=== PATIENT | female | born 1950 | race Caucasian/White ===

== ENCOUNTER → 2017-05-10 10:01 | Outpatient (CLI) | payer MEDICARE, OTHER, SELFPAY ==
--- NOTE | 2017-05-10 10:08 | HPBI_ITS ---
MAMMOGRAPHY - BILATERAL SCREENING REASON FOR EXAM: Female, 66 years old. Routine annual screening examination. PERTINENT HISTORY: Non-contributory. TECHNIQUE: Digital bilateral breast sy (3D mammographic acquisition) in the CC and MLO projections. 2-D mediolateral oblique (MLO) and craniocaudad (CC) views of both breasts were obtained. CAD: Full Field Digital Mammography with Computer Added Detection was performed. COMPARISON: None. Baseline examination. FINDINGS: Breast Composition: There are scattered areas of fibroglandular density. There are no dominant masses or suspicious calcifications. There is an 8 mm x 6.4 mm well-defined nodule in the deep upper medial portion of the left breast. This has the appearance of a small lymph node. No other significant abnormalities are identified. HPBI/SCREENING MAMM (CAD), BILAT IMPRESSION: Negative screening mammogram. Yearly followup mammogram recommended. (A) ASSESSMENT CATEGORY: BIRADS Category 2: Benign. A letter regarding these results will be sent to the patient by the facility within 30 days. Approximately 10% of breast cancers are not detected by mammography. A normal mammogram should not delay biopsy of a clinically suspicious abnormality. [id number] Electronically Signed: David Harris MD at 13:14 EST Tel [phone], Service support ,
== END ==
PROVIDERS: Family Provider Internal Medicine; PCP Internal Medicine; Visit Provider Internal Medicine
DX: Z12.31 Encounter for screening mammogram for malignant neoplasm of breast (principal)
CPT/HCPCS: 77063; 77067

== ENCOUNTER 2017-07-06 14:07 | Emergency (ER) | payer MEDICARE, OTHER, SELFPAY ==
[2017-07-06 14:09] VITALS: BP 118/93; PULSE 69; RESP 16; TEMP 35.8; O2SAT 99; BMI 20.9
--- NOTE | 2017-07-06 14:16 | EKG12_ITS ---
Test Reason : SYNCOPE Blood Pressure : / mmHG Vent. Rate : 067 BPM Atrial Rate : 067 BPM P-R Int : 152 ms QRS Dur : 072 ms QT Int : 424 ms P-R-T Axes : 043 -04 013 degrees QTc Int : 448 ms Sinus rhythm with Premature atrial complexes Low voltage QRS Incomplete Right bundle branch block Previous inferior infarct Abnormal ECG Confirmed by CHANG MCDONNELL, PRAFUL ([id number]), non linear editor KOBY CONNER ([id number]) on 07/10/2017 1:36:55 PM Referred By: LILA Confirmed By:PRAFUL DOWNING MD
--- NOTE | 2017-07-06 14:33 | NURSING ---
NO LW OR POA
--- NOTE | 2017-07-06 14:54 | RAD_ITS ---
STUDY: X-RAY CHEST REASON FOR EXAM: Female, 66 years old. LIGHT-HEADEDNESS TECHNIQUE: Single AP portable view of the chest. COMPARISON: None. FINDINGS: The lungs are clear and expanded. There is no demonstrated pleural abnormality. Normal size heart. Normal mediastinum and kary. Normal visualized pulmonary arteries. There is atherosclerotic tortuosity of the aortic arch and descending thoracic aorta. Normal visualized thoracic spine. There is degenerative osteoarthritis of the bilateral shoulders. There is no demonstrated abnormality of the visualized soft tissue structures of the upper abdomen. RAD/Chest 1 View (Portable) IMPRESSION: Degenerative changes, as described above. No demonstrated acute cardiopulmonary process. Electronically Signed: Too Ling MD at 15:29 EDT Tel , Service support ,
--- NOTE | 2017-07-06 15:00 | ED.VISSUMM ---
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 Had a near syncopal event at a grocery store. Patient states she was standing in a grocery line felt lightheaded and lowered herself to the ground did not lose consciousness. Prior to the event other than feeling lightheaded she denied any headache, chest pain, shortness of breath, abdominal pain, or any nausea, vomiting or diarrhea. No melena. She says she has felt fine the last several days. She has had a history of syncopal events in the past. Physical Examination: Well-appearing older female. Vital signs are stable afebrile. Pulse ox 99% room air no signs of hypoxia. H EENT exam unremarkable neck nontender lungs clear to auscultation bilaterally. Heart regular rate and rhythm no murmur rate about 70. Chest wall nontender. Abdomen soft nontender nondistended no giving or masses normal bowel sounds no peritoneal signs. Moving all 4 extremities. Neurovascularly intact. Calves nontender without edema or cords. Neurologically she is abnormal speech from her prior neurological condition but there is no focal motor deficits. Test Results: See normal white count of 6 normal H&H. BMP unremarkable with a BUN 27 creatinine 1.21 consistent with mild dehydration. Troponin negative. EKG sinus rhythm rate 67 no acute change from prior EKG from July of last year. Chest x-ray chronic changes normal cardiac silhouette no acute process read both by myself the radiologist. When the nurses did a static vital signs her pressure did drop with standing. She is currently receiving a liter normal saline 1 sets and will recheck her blood pressure she is doing well she will be discharged home. Emergency Department Course and Treatment: Patient with near syncope with unremarkable exam other than chronic speech difficulty. Undergo cardiac workup receive a liter of normal saline and have orthostatic vital signs obtained. Treatment Plan: Discharged plenty of fluids and rest. Return if feeling worse otherwise follow-up with your primary care physician. Disposition: discharge Impression: Near syncope Dehydration This note was generated with [employer] dictation software. It may contain incorrect words, spelling, and punctuation that were not noted in review of the chart prior to signing ED Disposition - Plan for ED Patient: Chief Complaint: Syncope Referrals: Maureen Lepe MD [Primary Care Provider] -
[2017-07-06 15:23] VITALS: BP 149/89; PULSE 74; RESP 16; O2SAT 98
[2017-07-06] MEDS: 0.9% Normal Saline 1,000 ML 1000 ML IV (15:23)
[2017-07-06 15:26] LABS: Absolute Lymphocyte Count 1.31 X10^3/ul (0.83-4.51); Absolute Neutrophil Count 4.2 X10^3/uL (2.0-7.7); Basophil# 0.02 X10^3/uL; Basophil% 0.3 % (0-1); Eosinophil# 0.07 X10^3/uL; Eosinophils% 1.2 % (0-5); Hematocrit 44.7 % (37-47); Hemoglobin 14.8 g/dl (12.0-15.0); Lymphocyte # 1.31 X10^3/ul (4.0); Lymphocyte % 21.6 % (19-41); Mean Corp Hgb Conc 33.1 g/gl (32-36); Mean Corpuscular Volume 93.7 fL (81-99); Mean Platelet Vol. 10.9 fl (6.2-12.0); Monocyte# 0.47 X10^3/uL; Monocyte% 7.7 % (0-10); Neutrophil % 69.2 % (47-70); POSITIVE COUNT NO; POSITIVE DIFFERENTIAL NO; POSITIVE MORPHOLOGY NO; Platelet Count 140 K/mm3 (150-450); RBC Distribution Width CV 12.8 % (11.6-14.6); RBC Distribution Width SD 43.7 fl (35.1-43.9); Red Blood Count 4.77 M/mm3 (4.2-5.4); White Blood Count 6.1 K/mm3 (4.4-11.0)
[2017-07-06 15:43] LABS: Anion Gap 7 (5-15); BUN 27 mg/dL (7-18); BUN/Creat Ratio 22.3 RATIO (10-20); Calcium,Total 9.9 mg/dL (8.5-10.1); Chloride 110 mmol/L (98-107); Creatinine, Serum 1.21 mg/dL (0.55-1.02); EST Glomerular Filtration Rate 47 mL/min (>60); Est Glom Filt Rate - Afr Amer 57 mL/min (>60); Estimated Creatinine Clearance 38.43 ml/min; Glucose 86 mg/dL (74-106); Sodium Level 144 mmol/L (136-145)
[2017-07-06 15:57] VITALS: BP 122/59; BP 132/77; BP 96/62; PULSE 68; PULSE 75; PULSE 89
--- NOTE | 2017-07-06 17:10 | ED.DEP ---
ED Disposition - Plan for ED Patient: Disposition: Home or Assisted Living Chief Complaint: Syncope Instructions: ED Hypotension Orthostatic, ED Dehydration Referrals: Maureen Lepe MD [Primary Care Provider] - Additional Instructions: Plenty of fluids and rest. Return if feeling worse. Otherwise follow-up with your doctor next week to ensure your feeling well.
[2017-07-06 17:56] VITALS: BP 125/63; BP 129/79; PULSE 61; PULSE 72
== END 2017-07-06 17:57 | disposition home or self-care (01) ==
PROVIDERS: Emergency Provider Emergency Medicine
DX: R55 Syncope and collapse (principal); E86.0 Dehydration; I10 Essential (primary) hypertension; I45.10 Unspecified right bundle-branch block
CPT/HCPCS: 71045; 80048; 84484; 85025; 93005; 99285; J7030; A4216

== ENCOUNTER 2017-09-26 13:21 | Inpatient (IN) | payer MEDICARE, OTHER, SELFPAY ==
[2017-09-26] VITALS (12 sets, daily range): BP systolic 117–137; BP diastolic 67–92; PULSE 72–126; RESP 14–20; TEMP 36.4–36.6; O2SAT 98–99; BMI 23.0; BMI 22.3
--- NOTE | 2017-09-26 13:27 | CT_ITS ---
STUDY: CT BRAIN WITHOUT CONTRAST REASON FOR EXAM: Female, 67 years old. SLURRED SPEECH RADIATION DOSAGE (If Supplied By Facility): CTDIvol = ( ) mGy, DLP = ( ) mGycm TECHNIQUE: Transaxial CT imaging of the brain was performed without administration of intravenous contrast material. Individualized dose optimization techniques were used for this CT. COMPARISON: October 11, 2016 FINDINGS: There is cerebral atrophy with widening of the extra-axial spaces and ventricular dilatation. There are areas of decreased attenuation within the white matter tracts of the supratentorial brain, consistent with microvascular disease changes. Again noted are the extensive bilateral basal ganglia, thalamic and mckay radiata and cerebellar calcifications. There is no intracranial hemorrhage. There are no findings of an acute ischemic infarction. Normal soft tissue structures. Normal visualized paranasal sinuses. CT/Brain/Head without Contrast IMPRESSION: No acute intracranial abnormality. Extensive dense calcifications. N.B. : The above information has been verbally conveyed by Radha Reed MD to , Covering Physician, on 09/26/2017 13:52:54 (ET). Electronically Signed: Radha Reed MD at 13:52 EDT Tel , Service support , N.B. : The above information has been verbally conveyed by Radha Reed MD to , Covering Physician, on 09/26/2017 13:52:54 (ET).
--- NOTE | 2017-09-26 13:27 | EKG12_ITS ---
Test Reason : STROKE Blood Pressure : / mmHG Vent. Rate : 113 BPM Atrial Rate : 096 BPM P-R Int : 000 ms QRS Dur : 130 ms QT Int : 372 ms P-R-T Axes : 000 040 -07 degrees QTc Int : 510 ms Atrial fibrillation Right bundle branch block Abnormal ECG Confirmed by SHANIQUE MCDONNELL, IVA ([id number]), editor farm journal KOBY CONNER ([id number]) on 09/28/2017 2:39:03 PM Referred By: LILA Confirmed By:IVA BAY MD
--- NOTE | 2017-09-26 13:28 | NURSING ---
DR MOJIAC IN ROOM
[2017-09-26 13:30] LABS: Bedside Glucose 110 mg/dL (70-110)
--- NOTE | 2017-09-26 13:32 | ED.VISSUMM ---
- ER Visit Summary Date of Service: 09/26/17 Chief Complaint: Sudden onset of slurred speech and left facial droop approximately 1235 today. History of Present Illness: The patient is a 67 F onset of left facial droop and slurred speech less than an hour ago. Brought in by squad. History per patient and squad. Patient states she has had this 1 other time but was never told that she had a stroke. She denies other complaints. Physical Examination: Well-appearing older female. Vital signs are stable afebrile. Her heart rate 115. Pulse ox 90% room air no signs of hypoxia. H EENT exam left facial droop. Tongue midline. Slurred speech but audible. Neck nontender. Lungs clear to auscultation bilaterally. Heart tachycardic rate about 115 no murmur. Chest wall nontender. Abdomen soft nontender. Moving all 4 extremities. Extremities neurovascularly intact. 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 She has negative drift of either the upper or lower extremities. Dorsi and plantar flexion intact. Normal sensation bilaterally. Fingertip to nose within normal limits bilaterally. Back exam nontender. Neurologically she is an NIH score of 2. With slurred speech that you can understand however. And a mild left facial droop. She has normal motor and sensation of both upper and lower extremities. Without ataxia or drift. Test Results: Patient will undergo a initial stroke workup. Dr. Wilberto Knight of neurology was in the room on my initial evaluation. CT of the brain without contrast showed no acute abnormalities read by the radiologist. Portable chest x-ray no acute abnormality. CBC normal. BMP unremarkable other than a creatinine 1.49. Normal gap. PT and INR unremarkable. Troponin normal. EKG is tachycardia rate of 113 with a right bundle pillo block. Emergency Department Course and Treatment: Repeat exam at 1400 the patient's exam is not changed. Her NIH remains to with the facial droop and slurred but intelligible speech. Otherwise normal motor function and sensation of the extremities. Treatment Plan: Admission for stroke evaluation Disposition: Admission Impression: Acute onset left facial droop and slurred speech rule out CVA This note was generated with [employer] software. It may contain incorrect words, spelling, and punctuation that were not noted in review of the chart prior to signing ED Disposition - Plan for ED Patient: Chief Complaint: Neuro S/Sx Referrals: Maureen Lepe MD [STAFF PHYSICIAN] -
--- NOTE | 2017-09-26 13:35 | ED.DCSUM_ITS ---
- ER Visit Summary Date of Service: 09/26/17 Chief Complaint: Sudden onset of slurred speech and left facial droop approximately 1235 today. History of Present Illness: The patient is a 67 F onset of left facial droop and slurred speech less than an hour ago. Brought in by squad. History per patient and squad. Patient states she has had this 1 other time but was never told that she had a stroke. She denies other complaints. Physical Examination: Well-appearing older female. Vital signs are stable afebrile. Her heart rate 115. Pulse ox 90% room air no signs of hypoxia. H EENT exam left facial droop. Tongue midline. Slurred speech but audible. Neck nontender. Lungs clear to auscultation bilaterally. Heart tachycardic rate about 115 no murmur. Chest wall nontender. Abdomen soft nontender. Moving all 4 extremities. Extremities neurovascularly intact. 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 She has negative drift of either the upper or lower extremities. Dorsi and plantar flexion intact. Normal sensation bilaterally. Fingertip to nose within normal limits bilaterally. Back exam nontender. Neurologically she is an NIH score of 2. With slurred speech that you can understand however. And a mild left facial droop. She has normal motor and sensation of both upper and lower extremities. Without ataxia or drift. Test Results: Patient will undergo a initial stroke workup. Dr. Wilberto Knight of neurology was in the room on my initial evaluation. CT of the brain without contrast showed no acute abnormalities read by the radiologist. Portable chest x-ray no acute abnormality. CBC normal. BMP unremarkable other than a creatinine 1.49. Normal gap. PT and INR unremarkable. Troponin normal. EKG is tachycardia rate of 113 with a right bundle pillo block. Emergency Department Course and Treatment: Repeat exam at 1400 the patient's exam is not changed. Her NIH remains to with the facial droop and slurred but intelligible speech. Otherwise normal motor function and sensation of the extremities. Treatment Plan: Admission for stroke evaluation Disposition: Admission Impression: Acute onset left facial droop and slurred speech rule out CVA This note was generated with [employer] software. It may contain incorrect words, spelling, and punctuation that were not noted in review of the chart prior to signing ED Disposition - Plan for ED Patient: Chief Complaint: Neuro S/Sx Referrals: Maureen Lepe MD [STAFF PHYSICIAN] -
[2017-09-26 13:39] LABS: Absolute Neutrophil Count 4.3 X10^3/uL (2.0-7.7); Basophil# 0.03 X10^3/uL; Basophil% 0.4 % (0-1); Eosinophil# 0.15 X10^3/uL; Eosinophils% 2.2 % (0-5); Hematocrit 44.3 % (37-47); Hemoglobin 14.8 g/dl (12.0-15.0); Mean Corp Hgb Conc 33.4 g/gl (32-36); Mean Corpuscular Hgb 30.7 pg (27.0-32.0); Mean Corpuscular Volume 91.9 fL (81-99); Mean Platelet Vol. 10.7 fl (6.2-12.0); Monocyte# 0.63 X10^3/uL; Monocyte% 9.3 % (0-10); Neutrophil # 4.29 X10^3/uL (2.7-7.7); Neutrophil % 63.1 % (47-70); Platelet Count 156 K/mm3 (150-450); RBC Distribution Width CV 12.4 % (11.6-14.6); RBC Distribution Width SD 41.7 fl (35.1-43.9); Red Blood Count 4.82 M/mm3 (4.2-5.4); White Blood Count 6.8 K/mm3 (4.4-11.0)
[2017-09-26 13:42] LABS: International Normalized Ratio 1.1; Partial Thromboplast Time 26.3 Seconds (24.1-36.2)
[2017-09-26 13:45] LABS: POSITIVE COUNT NO; POSITIVE DIFFERENTIAL NO; POSITIVE MORPHOLOGY NO
--- NOTE | 2017-09-26 13:47 | NURSING ---
1314 STROKE ALERT CALLED
[2017-09-26 13:50] LABS: Anion Gap 9 (5-15); BUN 24 mg/dL (7-18); BUN/Creat Ratio 16.1 RATIO (10-20); Calcium,Total 9.7 mg/dL (8.5-10.1); Chloride 109 mmol/L (98-107); Creatinine, Serum 1.49 mg/dL (0.55-1.02); EST Glomerular Filtration Rate 37 mL/min (>60); Est Glom Filt Rate - Afr Amer 45 mL/min (>60); Estimated Creatinine Clearance 30.77 ml/min; Glucose 118 mg/dL (74-106); Sodium Level 143 mmol/L (136-145)
--- NOTE | 2017-09-26 13:58 | CON.PCM_ITS ---
Reason for Consult Date of Consultation: 09/26/17 Reason for Consultation: Slurred speech, stroke team History of Present Illness: The patient is a 67 year old female with a history of Fahr's disease, who at approximately 1235 her says she became nonspecifically abnormal, she states was apparently standing and became confused. She does tell me that she has had multiple spells of lightheadedness over the past couple weeks for unclear reasons. The called the squad who called a stroke team from the field because of slurred speech however her tells me that her slurred speech is now her baseline related to her fahr's disease. He believes she is normal now. She has been feeling otherwise well recently, without new medicines, changes in her medications, no GI or complaints or recent illnesses. Denies stress. Initially a stroke team was called, I met the patient in the emergency department, observed Dr. Menjivar's examination and conducted my own examination. I reviewed the CAT scan concurrent with the CAT scans performance in the educational technologist room. 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 Overactive bladder (Acute) N32.81 Vitamin K deficiency disease (Acute) E56.1 HTN (hypertension) (Chronic) I10 Allergies clonidine Allergy (Verified 07/06/17 14:08) Rash propoxyphene napsylate [From Darvocet-N] Allergy (Verified 07/06/17 14:08) Rash triamcinolone Allergy (Verified 07/06/17 14:08) Rash Home Medications: Ambulatory Orders Medication Instructions Recorded Aspirin [Adult Low Dose Aspirin EC] 81 mg PO DAILY 05/14/15 cyanocobalamin (vit B-12) 100 mcg 100 mcg PO ONCE 05/11/17 tablet diphenhydramine 25 mg tablet 25 mg PO ONCE 05/11/17 meloxicam 15 mg tablet 15 mg PO QHS #90 tab 05/11/17 trazodone 50 mg tablet 50 mg PO QHS #90 tab 05/11/17 Surgical History: Surgical History (Last Reviewed 05/11/17 @ 11:00 by CATHERINE Blancas) History of back surgery Z98.890 History of hysterectomy Z98.890, Z90.710 History of tonsillectomy Z98.890, Z90.89 history of bladder sling Lives: Spouse/ Significant Other Smoking Status: Never smoker Review of Systems Constitutional: Denies: Chills, Fever, Weight Change HEENT: Denies: Head Aches, Sinus Congestion, Sinus Drainage Cardiovascular: Denies: Chest Pain, Palpitations Respiratory: Denies: Cough, Shortness of breath at rest, Sputum production Gastrointestinal: Denies: Abdominal Pain, Nausea, Vomiting Genitourinary: Denies: Dysuria Musculoskeletal: Denies: Joint Pain, Joint Tenderness Skin: Denies: Rash, Wounds Neurological: Reports: Slurred speech. Denies: Change in Speech, Focal weakness , Numbness, Tingling Psychiatric: Denies: Anxiety, Depression, Homicidal Ideations, Suicidal Ideations Hematologic/ Lymphatic: Denies: Easy Bruising, Easy Bleeding Objective: Logic examination does reveal dysarthria but otherwise normal examination cranial nerves are intact Visual aviles are intact There is no drift Strength and sensation are intact - Physical Exam Vital Signs Temp Pulse Resp BP Pulse Ox 36.4 C L 115 H 20 H 135/77 H 99 09/26/17 13:22 09/26/17 13:26 09/26/17 13:26 09/26/17 13:26 09/26/17 13:48 Oxygen Flow Rate (L/min) 2 Oxygen Delivery Method Nasal Cannula Weight: 60.8 kg Body Mass Index (BMI) 23.0 Finger Stick Blood Glucose 110 Laboratory Tests Past 24 Hrs 09/26/17 09/26/17 09/26/17 13:25 13:25 13:25 WBC 6.8 RBC 4.82 Hgb 14.8 Hct 44.3 MCV 91.9 MCH 30.7 MCHC 33.4 RDW 12.4 RDW Differential 41.7 Plt Count 156 MPV 10.7 Immature Gran % (Auto) 0.000 Neut % (Auto) 63.1 Lymph % (Auto) 25.0 [place] % (Auto) 9.3 Eos % (Auto) 2.2 Baso % (Auto) 0.4 Absolute Neuts (auto) 4.3 Absolute Lymphs (auto) 1.70 Total Counted Not Reportable PT 14.0 INR 1.1 APTT 26.3 Sodium 143 Potassium 4.0 Chloride 109 H Carbon Dioxide 25.0 Anion Gap 9 BUN 24 H Creatinine 1.49 H Estim Creat Clear Calc 30.77 Est GFR (MDRD) Af Amer 45 L Est GFR (MDRD) Non-Af 37 L BUN/Creatinine Ratio 16.1 Glucose 118 H Calcium 9.7 Troponin I < 0.015 POC Glucose 09/26/17 13:25 POC Glucose 110 Reviewed the CAT scan, she does have severe diffuse calcifications in the cerebellum as well as in the subcortical white matter, and 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 Assessment/Plan All Active Problems (Last Reviewed 05/11/17 @ 11:00 by Santhosh Mai NP-C) Overactive bladder (Acute) Vitamin K deficiency disease (Acute) Sinusitis (Acute) 1. Presyncope: Blood pressure is noted to be low when she arrived in the emergency department. Recommend further evaluation for low blood pressure. There is no cause evident at this point. Is no evidence of stroke symptoms at this point, therefore no indication for TPA. 2. Fahrs disease: Chronic stable
--- NOTE | 2017-09-26 14:02 | RAD_ITS ---
STUDY: X-RAY CHEST REASON FOR EXAM: Female, 67 years old. CVA WORK UP TECHNIQUE: Single AP portable view of the chest. COMPARISON: None. FINDINGS: The lungs are clear and expanded. There is no demonstrated pleural abnormality. Normal size heart. Normal mediastinum and kary. Normal visualized pulmonary arteries. Normal visualized aortic arch and descending thoracic aorta. There is a mild levoscoliosis of the thoracic spine. There is degenerative osteoarthritis of the bilateral shoulders. There is no demonstrated abnormality of the visualized soft tissue structures of the upper abdomen. RAD/Chest 1 View IMPRESSION: Degenerative changes, as described above. No demonstrated acute cardiopulmonary process. Electronically Signed: Too Ling MD at 14:30 EDT Tel , Service support ,
--- NOTE | 2017-09-26 14:13 | NURSING ---
PCU RT FACIAL DROOP AND SLURRED SPEECH DREW SHARP
--- NOTE | 2017-09-26 14:42 | PCM.HP.STD ---
Problem List (1) Chronic back pain Status: Chronic (2) Fahr's disease Status: Chronic (3) Overactive bladder Status: Chronic History of Present Illness Date of Admission: 09/26/17 Chief Complaint: Slurred speech, facial droop. The patient is a 67 year old F with past medical history as mentioned above presented to the emergency room because of slurred speech and facial droop. Her symptoms started around 12:35 PM today with sudden onset left-sided facial droop associated with slurred speech, lasted until she came to the emergency department and without aggravating or relieving factors.. According to the , she was standing, could not move, putted her head down and started having facial droop on the left side as well as slurred speech. 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 She denied focal arm or leg weakness. She reported chronic bilateral leg numbness. There was no reported loss of consciousness or seizure activity. Upon arrival to ER, her NIH stroke scale was 2. Stroke team called and no TPA was given. She was tachycardic, afebrile, blood pressure stable and pulse ox is maintained on room air. Her routine blood work was remarkable for creatinine of 1.49, otherwise unremarkable. Troponin is negative. EKG revealed wide QRS complexes, right bundle branch block and prolonged QTC, no acute ST elevation. CT scan brain showed no acute infarction or hemorrhage. Chest x-ray showed no acute infiltrate, consolidation or effusion. She is being admitted for slurred speech and facial droop with concern of TIA versus acute stroke. 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 Overactive bladder (Chronic) N32.81 Allergies clonidine Allergy (Verified 07/06/17 14:08) Rash propoxyphene napsylate [From Darvocet-N] Allergy (Verified 07/06/17 14:08) Rash triamcinolone Allergy (Verified 07/06/17 14:08) Rash Home Medications: Ambulatory Orders Medication Instructions Recorded Aspirin [Adult Low Dose Aspirin EC] 81 mg PO DAILY 05/14/15 cyanocobalamin (vit B-12) 100 mcg 100 mcg PO ONCE 05/11/17 tablet diphenhydramine 25 mg tablet 25 mg PO ONCE 05/11/17 meloxicam 15 mg tablet 15 mg PO QHS #90 tab 05/11/17 trazodone 50 mg tablet 50 mg PO QHS #90 tab 05/11/17 Surgical History: Surgical History (Last Reviewed 05/11/17 @ 11:00 by CATHERINE Blancas) History of back surgery Z98.890 History of hysterectomy Z98.890, Z90.710 History of tonsillectomy Z98.890, Z90.89 history of bladder sling Surgical History: hysterectomy Psychiatric History: No pertinent psych hx 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 Lives: Spouse/ Significant Other Smoking Status: Never smoker Alcohol: None Drugs: None - *Family History Maternal Family History: Family History (Last Reviewed 05/11/17 @ 11:00 by CATHERINE Blancas) Mother Depression Father Heart disease History Items: No pertinent history Paternal Family History: Family History (Last Reviewed 05/11/17 @ 11:00 by CATHERINE Blancas) Mother Depression Father Heart disease History Items: No pertinent history Review of Systems Constitutional: Denies: Anorexia, Chills, Fever, Weakness Eyes: Denies: Blurred vision, Double vision, Drainage, Vision Change HEENT: Denies: Difficulty Hearing, Ear Pain, Eye Pain, Nasal Congestion, Sore Throat Cardiovascular: Denies: Chest Pain, Chest Pressure, Chest Tightness, Heaviness, Light Headedness, Palpitations, Syncope Respiratory: Denies: Cough, Pleuritic Pain, Shortness of Breath, Sputum production, Wheezing Gastrointestinal: Denies: Abdominal Pain, Constipation, Diarrhea, Nausea, Vomiting Genitourinary: Denies: Dysuria, Frequency, Hematuria Musculoskeletal: Denies: Arm Pain, Back Pain, Foot Pain Neurological: Reports: Change in Speech, Slurred speech, - - Facial droop.. Denies: Balance problems, Incoordination, Numbness, Tingling Psychiatric: Denies: Anxiety, Depression Endocrine: Denies: Change in Body Habitus, Polydipsia VTE Information - Inpt Only VTE Present on Admission: No VTE Mechan Device Prophylaxis: None VTE Pharm Prophylaxis ordered?: Yes - Physical Exam General: Alert, Oriented x3, Cooperative, No apparent distress, - - Dysarthria, left facial droop. HEENT: Atraumatic, PERRLA, EOMI, Normocephalic Oral: Moist Mucosa, No Gingival or Mucosal Lesions/ Ulcerations Neck: Supple, No JVD, Negative Carotid Bruits, Trachea Midline, Thyroid Normal Size and Texture Lungs: Clear to auscultation, No rhonchi, No wheeze, No rales, Diminished Cardiovascular: Regular rate, Regular Rhythm, Normal S1, Normal S2, No murmurs Abdomen: Bowel Sounds Present, Soft, Non Tender, Non-Distended, No Hepato-splenomegaly Extremities: No clubbing, No cyanosis, No edema Skin: No rashes, No breakdown Lymphatic: No Cervical, Supraclavicular, or Inguinal Adenopathy Neurological: Motor Exam 5/5 strength throughout, - - Dysarthria, left facial droop. Psych/Mental Status: Normal Affect, Appropriate, Alert and oriented to time, place, person, mood and affect Vital Signs Temp Pulse Resp BP Pulse Ox 97.6 F L 111 H 18 118/92 H 99 09/26/17 13:22 09/26/17 14:03 09/26/17 14:03 09/26/17 14:03 09/26/17 13:48 Oxygen Flow Rate (L/min) 2 Oxygen Delivery Method Nasal Cannula Weight: 134 lb 0.657 oz Body Mass Index (BMI) 23.0 Finger Stick Blood Glucose 110 Laboratory Tests Past 24 Hrs 09/26/17 09/26/17 09/26/17 13:25 13:25 13:25 WBC 6.8 RBC 4.82 Hgb 14.8 Hct 44.3 MCV 91.9 MCH 30.7 MCHC 33.4 RDW 12.4 RDW Differential 41.7 Plt Count 156 MPV 10.7 Immature Gran % (Auto) 0.000 Neut % (Auto) 63.1 Lymph % (Auto) 25.0 [place] % (Auto) 9.3 Eos % (Auto) 2.2 Baso % (Auto) 0.4 Absolute Neuts (auto) 4.3 Absolute Lymphs (auto) 1.70 Total Counted Not Reportable PT 14.0 INR 1.1 APTT 26.3 Sodium 143 Potassium 4.0 Chloride 109 H Carbon Dioxide 25.0 Anion Gap 9 BUN 24 H Creatinine 1.49 H Estim Creat Clear Calc 30.77 Est GFR (MDRD) Af Amer 45 L Est GFR (MDRD) Non-Af 37 L BUN/Creatinine Ratio 16.1 Glucose 118 H Calcium 9.7 Troponin I < 0.015 POC Glucose 09/26/17 13:25 POC Glucose 110 Clinical Impression(s) from Imaging Studies Brain CT 09/26/17 13:27 IMPRESSION: No acute intracranial abnormality. Extensive dense calcifications. N.B. : The above information has been verbally conveyed by Radha Reed MD to , Covering Physician, on 09/26/2017 13:52:54 (ET). Electronically Signed: Radha Reed MD at 13:52 EDT Tel , Service support , N.B. : The above information has been verbally conveyed by Radha Reed MD to , Covering Physician, on 09/26/2017 13:52:54 (ET). Chest X-Ray 09/26/17 14:02 IMPRESSION: Degenerative changes, as described above. No demonstrated acute cardiopulmonary process. Electronically Signed: Too Ling MD at 14:30 EDT Tel , Service support , Assessment/Plan This is a 67 years old female patient presented to the emergency room because of slurred speech and facial droop in context of history of Fahr's chronic dysarthria and she is being admitted for evaluation for possible TIA versus stroke. #1 Slurred speech/left facial droop/probable TIA versus stroke: She does have chronic dysarthria but no facial droop. CT scan brain without acute findings. On examination, she still have left facial droop, no motor deficit. Blood pressure stable, tachycardic. Plan: Admit to PCU, cardiac monitoring, NIH stroke scale, MRI brain, 2D echocardiogram, neurology consult, PT OT evaluation and treatment. #2 abnormal EKG: EKG revealed wide QRS complexes, right bundle branch block and QTC of 510 ms. Compared to EKG from June,, those changes are new. Patient denies any chest pain. Troponin was negative. Plan: 2D echocardiogram, repeat EKG tomorrow morning. #3 dehydration: Likely because of poor oral intake. Creatinine is 1.49, most recently it was 1.21. Baseline creatinine is normal. Plan: IV fluids, repeat BMP tomorrow morning, encourage oral intake. #4 Fahr's disease: Chronic, stable. #5 DVT prophylaxis: Subcu heparin. This note was generated with [employer] dictation software. It may contain incorrect words, spelling, and punctuation that were not noted in checking the note before signing. Code Visit Inpatient E&M: 68519 Init Hosp L3
--- NOTE | 2017-09-26 14:49 | HP.PCM_ITS ---
Problem List (1) Chronic back pain Status: Chronic (2) Fahr's disease Status: Chronic (3) Overactive bladder Status: Chronic History of Present Illness Date of Admission: 09/26/17 Chief Complaint: Slurred speech, facial droop. The patient is a 67 year old F with past medical history as mentioned above presented to the emergency room because of slurred speech and facial droop. Her symptoms started around 12:35 PM today with sudden onset left-sided facial droop associated with slurred speech, lasted until she came to the emergency department and without aggravating or relieving factors.. According to the , she was standing, could not move, putted her head down and started having facial droop on the left side as well as slurred speech. 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 She denied focal arm or leg weakness. She reported chronic bilateral leg numbness. There was no reported loss of consciousness or seizure activity. Upon arrival to ER, her NIH stroke scale was 2. Stroke team called and no TPA was given. She was tachycardic, afebrile, blood pressure stable and pulse ox is maintained on room air. Her routine blood work was remarkable for creatinine of 1.49, otherwise unremarkable. Troponin is negative. EKG revealed wide QRS complexes, right bundle branch block and prolonged QTC, no acute ST elevation. CT scan brain showed no acute infarction or hemorrhage. Chest x-ray showed no acute infiltrate, consolidation or effusion. She is being admitted for slurred speech and facial droop with concern of TIA versus acute stroke. 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 Overactive bladder (Chronic) N32.81 Allergies clonidine Allergy (Verified 07/06/17 14:08) Rash propoxyphene napsylate [From Darvocet-N] Allergy (Verified 07/06/17 14:08) Rash triamcinolone Allergy (Verified 07/06/17 14:08) Rash Home Medications: Ambulatory Orders Medication Instructions Recorded Aspirin [Adult Low Dose Aspirin EC] 81 mg PO DAILY 05/14/15 cyanocobalamin (vit B-12) 100 mcg 100 mcg PO ONCE 05/11/17 tablet diphenhydramine 25 mg tablet 25 mg PO ONCE 05/11/17 meloxicam 15 mg tablet 15 mg PO QHS #90 tab 05/11/17 trazodone 50 mg tablet 50 mg PO QHS #90 tab 05/11/17 Surgical History: Surgical History (Last Reviewed 05/11/17 @ 11:00 by CATHERINE Blancas) History of back surgery Z98.890 History of hysterectomy Z98.890, Z90.710 History of tonsillectomy Z98.890, Z90.89 history of bladder sling Surgical History: hysterectomy Psychiatric History: No pertinent psych hx 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 Lives: Spouse/ Significant Other Smoking Status: Never smoker Alcohol: None Drugs: None - *Family History Maternal Family History: Family History (Last Reviewed 05/11/17 @ 11:00 by CATHERINE Blancas) Mother Depression Father Heart disease History Items: No pertinent history Paternal Family History: Family History (Last Reviewed 05/11/17 @ 11:00 by CATHERINE Blancas) Mother Depression Father Heart disease History Items: No pertinent history Review of Systems Constitutional: Denies: Anorexia, Chills, Fever, Weakness Eyes: Denies: Blurred vision, Double vision, Drainage, Vision Change HEENT: Denies: Difficulty Hearing, Ear Pain, Eye Pain, Nasal Congestion, Sore Throat Cardiovascular: Denies: Chest Pain, Chest Pressure, Chest Tightness, Heaviness, Light Headedness, Palpitations, Syncope Respiratory: Denies: Cough, Pleuritic Pain, Shortness of Breath, Sputum production, Wheezing Gastrointestinal: Denies: Abdominal Pain, Constipation, Diarrhea, Nausea, Vomiting Genitourinary: Denies: Dysuria, Frequency, Hematuria Musculoskeletal: Denies: Arm Pain, Back Pain, Foot Pain Neurological: Reports: Change in Speech, Slurred speech, - - Facial droop.. Denies: Balance problems, Incoordination, Numbness, Tingling Psychiatric: Denies: Anxiety, Depression Endocrine: Denies: Change in Body Habitus, Polydipsia VTE Information - Inpt Only VTE Present on Admission: No VTE Mechan Device Prophylaxis: None VTE Pharm Prophylaxis ordered?: Yes - Physical Exam General: Alert, Oriented x3, Cooperative, No apparent distress, - - Dysarthria, left facial droop. HEENT: Atraumatic, PERRLA, EOMI, Normocephalic Oral: Moist Mucosa, No Gingival or Mucosal Lesions/ Ulcerations Neck: Supple, No JVD, Negative Carotid Bruits, Trachea Midline, Thyroid Normal Size and Texture Lungs: Clear to auscultation, No rhonchi, No wheeze, No rales, Diminished Cardiovascular: Regular rate, Regular Rhythm, Normal S1, Normal S2, No murmurs Abdomen: Bowel Sounds Present, Soft, Non Tender, Non-Distended, No Hepato- splenomegaly Extremities: No clubbing, No cyanosis, No edema Skin: No rashes, No breakdown Lymphatic: No Cervical, Supraclavicular, or Inguinal Adenopathy Neurological: Motor Exam 5/5 strength throughout, - - Dysarthria, left facial droop. Psych/Mental Status: Normal Affect, Appropriate, Alert and oriented to time, place, person, mood and affect Vital Signs Temp Pulse Resp BP Pulse Ox 97.6 F L 111 H 18 118/92 H 99 09/26/17 13:22 09/26/17 14:03 09/26/17 14:03 09/26/17 14:03 09/26/17 13:48 Oxygen Flow Rate (L/min) 2 Oxygen Delivery Method Nasal Cannula Weight: 134 lb 0.657 oz Body Mass Index (BMI) 23.0 Finger Stick Blood Glucose 110 Laboratory Tests Past 24 Hrs 09/26/17 09/26/17 09/26/17 13:25 13:25 13:25 WBC 6.8 RBC 4.82 Hgb 14.8 Hct 44.3 MCV 91.9 MCH 30.7 MCHC 33.4 RDW 12.4 RDW Differential 41.7 Plt Count 156 MPV 10.7 Immature Gran % (Auto) 0.000 Neut % (Auto) 63.1 Lymph % (Auto) 25.0 [place] % (Auto) 9.3 Eos % (Auto) 2.2 Baso % (Auto) 0.4 Absolute Neuts (auto) 4.3 Absolute Lymphs (auto) 1.70 Total Counted Not Reportable PT 14.0 INR 1.1 APTT 26.3 Sodium 143 Potassium 4.0 Chloride 109 H Carbon Dioxide 25.0 Anion Gap 9 BUN 24 H Creatinine 1.49 H Estim Creat Clear Calc 30.77 Est GFR (MDRD) Af Amer 45 L Est GFR (MDRD) Non-Af 37 L BUN/Creatinine Ratio 16.1 Glucose 118 H Calcium 9.7 Troponin I < 0.015 POC Glucose 09/26/17 13:25 POC Glucose 110 Clinical Impression(s) from Imaging Studies Brain CT 09/26/17 13:27 IMPRESSION: No acute intracranial abnormality. Extensive dense calcifications. N.B. : The above information has been verbally conveyed by Radha Reed MD to , Covering Physician, on 09/26/2017 13:52:54 (ET). Electronically Signed: Radha Reed MD at 13:52 EDT Tel , Service support , N.B. : The above information has been verbally conveyed by Radha Reed MD to , Covering Physician, on 09/26/2017 13:52:54 (ET). Chest X-Ray 09/26/17 14:02 IMPRESSION: Degenerative changes, as described above. No demonstrated acute cardiopulmonary process. Electronically Signed: Too Ling MD at 14:30 EDT Tel , Service support , Assessment/Plan This is a 67 years old female patient presented to the emergency room because of slurred speech and facial droop in context of history of Fahr's chronic dysarthria and she is being admitted for evaluation for possible TIA versus stroke. #1 Slurred speech/left facial droop/probable TIA versus stroke: She does have chronic dysarthria but no facial droop. CT scan brain without acute findings. On examination, she still have left facial droop, no motor deficit. Blood pressure stable, tachycardic. Plan: Admit to PCU, cardiac monitoring, NIH stroke scale, MRI brain, 2D echocardiogram, neurology consult, PT OT evaluation and treatment. #2 abnormal EKG: EKG revealed wide QRS complexes, right bundle branch block and QTC of 510 ms. Compared to EKG from June,, those changes are new. Patient denies any chest pain. Troponin was negative. Plan: 2D echocardiogram , repeat EKG tomorrow morning. #3 dehydration: Likely because of poor oral intake. Creatinine is 1.49, most recently it was 1.21. Baseline creatinine is normal. Plan: IV fluids, repeat BMP tomorrow morning, encourage oral intake. #4 Fahr's disease: Chronic, stable. #5 DVT prophylaxis: Subcu heparin. This note was generated with [employer] dictation software. It may contain incorrect words, spelling, and punctuation that were not noted in checking the note before signing. Code Visit Inpatient E&M: 27553 Init Hosp L3
--- NOTE | 2017-09-26 15:36 | MRI_ITS ---
STUDY: MRI BRAIN WITHOUT CONTRAST REASON FOR EXAM: Female, 67 years old. Facial droop, speech slurred. TECHNIQUE: Standardized multiplanar fat and water weighted pulse sequences were obtained. COMPARISON: None. FINDINGS: There is moderate cerebral atrophy with widening of the extra-axial spaces and ventricular dilatation. There are multiple confluent white matter hyperintensities, distributed throughout the deep white matter tracts of the cerebral hemispheres, consistent with severe chronic white matter ischemic changes. There is no evidence for recent intracranial ischemia or other cause of cytotoxic edema on diffusion weighted imaging (DWI). There is blooming artifact within the bilateral basal ganglia consistent with known calcification with history of Fars disease. There are prominent perivascular spaces (PVS) involving the basal ganglia. Normal thalami. There is no extra-axial fluid accumulation. Normal flow voids within the major intracranial circulation suggesting patency by spin echo criteria. Normal sella turcica, pituitary gland, infundibular stalk, optic chiasm and hypothalamus. Normal tectal plate and pineal gland. Normal midbrain, montez and medulla. Normal cerebellum. Normal basal cisterns. Normal bilateral temporal bones. Normal bilateral internal auditory canals. No demonstrated orbital abnormality, within the constraints of a routine brain study. Normal visualized paranasal sinuses. Normal calvarium and skull base. Normal visualized soft tissue structures. Normal visualized upper cervical spine. MRI/Brain without Contrast IMPRESSION: 1. Findings consistent with periventricular white ischemic change and basal ganglia/cerebellar calcification consistent with known history of Fars disease. Otherwise no evidence of acute intracranial bleed, mass or ischemia. Electronically Signed: Marvin Pierre DO at 23:08 EDT , Service support ,
--- NOTE | 2017-09-26 16:17 | CHAPLAIN ---
Type of Pastoral Visit ___ Initial Visit ___ Follow-up Visit ___ On-call Visit ___ General Patient Visit ___ Spiritual Assessment ___ Family Conference ___ Bereavement ___ Rapid Response ___ Code Blue _x - ED Stroke Team - Other (describe below) Pastoral Care Referral From _x__ Patient _x__ Family ___ Nurse ___ Physician ___ Bee Keeper ___ Senior It Assistant _x__ Other (describe below) Sacrament/Intervention _x__ Active listening ___ Anointing ___ Amish ___ Bereavement ___ Communion ___ Estrellita exploration ___ ___ Life review _x__ Prayer ___ Reconciliation ___ Sacrament of Sick _x__ Supportive presence ___ Wedding ___ Other (describe below) Pastoral Comments responded to Stroke Team alert in ED; met spouse of patient when he arrived following the squad; later returned to ED to meet with patient and spouse to offer of support; pt wanted prayer and spiritual care; spouse spoke of their cheondoism connections; offered prayer; members of medical team came into room and this wagon drill operator left; will follow up with patient after admission
[2017-09-26] MEDS: 0.9% Normal Saline 1,000 ML 75 ML IV (16:45)
[2017-09-26] MEDS: CLARIFY ORDER NOTE (16:49)
--- NOTE | 2017-09-26 17:23 | EKG12_ITS ---
Test Reason : TACHYCARDIA Blood Pressure : / mmHG Vent. Rate : 128 BPM Atrial Rate : 128 BPM P-R Int : 120 ms QRS Dur : 122 ms QT Int : 338 ms P-R-T Axes : 000 032 -14 degrees QTc Int : 493 ms Sinus tachycardia Right bundle branch block Inferior infarct , age undetermined Abnormal ECG When compared with ECG of 26-SEP-2017 13:23, MANUAL COMPARISON REQUIRED, DATA IS UNCONFIRMED Confirmed by CHANG MCDONNELL, PRAFUL ([id number]), school photograph editor KOBY CONNER ([id number]) on 10/04/2017 9:46:10 AM Referred By: DREW Confirmed By:PRAFUL DOWNING MD
[2017-09-26] MEDS: traZODone 50 MG Tablet PO (21:12)
[2017-09-26] MEDS: Atorvastatin Calcium 40 MG Tablet PO (21:12)
[2017-09-26] MEDS: Meloxicam 15 MG Tablet PO (21:12)
[2017-09-26] MEDS: Heparin Injection (Vial) 5,000 UNIT/ML VIAL 5000 UNIT SC (21:12)
[2017-09-27] VITALS (7 sets, daily range): BP systolic 118–165; BP diastolic 68–70; PULSE 51–84; RESP 16; TEMP 36.5–37.1; O2SAT 96–98; BMI 22.3
[2017-09-27] MEDS: Heparin Injection (Vial) 5,000 UNIT/ML VIAL 5000 UNIT SC (05:51)
--- NOTE | 2017-09-27 05:55 | EKG12_ITS ---
Test Reason : AM Blood Pressure : / mmHG Vent. Rate : 066 BPM Atrial Rate : 066 BPM P-R Int : 188 ms QRS Dur : 080 ms QT Int : 438 ms P-R-T Axes : 045 -11 032 degrees QTc Int : 459 ms Sinus rhythm with Premature supraventricular complexes Low voltage QRS Right intra ventricular conduction delay Inferior infarct , age undetermined Abnormal ECG Confirmed by SHANIQUE MCDONNELL, IVA ([id number]), senior editor KOBY CONNER ([id number]) on 10/04/2017 11:35:05 AM Referred By: DREW Confirmed By:IVA BAY MD
[2017-09-27 06:40] LABS: Anion Gap 6 (5-15); BUN 28 mg/dL (7-18); BUN/Creat Ratio 24.6 RATIO (10-20); Calcium,Total 8.7 mg/dL (8.5-10.1); Chloride 113 mmol/L (98-107); Cholesterol 136 mg/dL (200); Creatinine, Serum 1.14 mg/dL (0.55-1.02); EST Glomerular Filtration Rate 50 mL/min (>60); Est Glom Filt Rate - Afr Amer 61 mL/min (>60); Estimated Creatinine Clearance 40.22 ml/min; Glucose 87 mg/dL (74-106); High Density Lipoprotein 43 mg/dL; Potassium 4.4 mmol/L (3.5-5.1); Sodium Level 144 mmol/L (136-145); Triglycerides 48 mg/dL; Very Low Density Lipoprotein 10 mg/dL (5-40)
[2017-09-27] MEDS: 0.9% Normal Saline 1,000 ML 75 ML IV (08:40)
[2017-09-27] MEDS: Aspirin E.C. 81 MG Tablet PO (08:41)
[2017-09-27] MEDS: DiphenhydrAMINE 25 MG Capsule 50 MG PO (08:42)
--- NOTE | 2017-09-27 10:49 | PCM.DC ---
You will use the following diet at home:: Regular Discharge Activity: Return to Normal Activity Allergies/Adverse Reactions: Allergies clonidine Allergy (Verified 07/06/17 14:08) Rash propoxyphene napsylate [From Darvocet-N] Allergy (Verified 07/06/17 14:08) Rash triamcinolone Allergy (Verified 07/06/17 14:08) Rash Medications to take at Discharge Aspirin [Adult Low Dose Aspirin EC] 81 mg PO DAILY 05/14/15 cyanocobalamin (vit B-12) 100 mcg tablet 100 mcg PO DAILY 05/11/17 diphenhydramine 25 mg tablet 50 mg PO DAILY 05/11/17 meloxicam 15 mg tablet 15 mg PO QHS #90 tab 05/11/17 trazodone 50 mg tablet 50 mg PO QHS #90 tab 05/11/17 Primary Care Physician: Maureen Lepe MD [STAFF PHYSICIAN] - In 1 Week Proposed Discharge Date: 09/27/17
--- NOTE | 2017-09-27 10:50 | PCM.DC.SUM ---
Discharge Date and Diagnosis Date of Admission: 09/26/17 Date of Discharge: 09/27/17 - Secondary Discharge Diagnosis Chronic Problems (Last Updated 09/26/17 @ 14:34 by Dayne Cintron MD) Chronic back pain (Chronic) Fahr's disease (Chronic) Overactive bladder (Chronic) Hospital Course and Treatment Summary of Care Provided: This is a 67 years old female patient with Fahr's syndrome with chronic dysarthria who presented to the emergency room because of slurred speech and facial droop , she was admitted for stroke workup. CT scan of the brain and MRI of the brain did not reveal any acute findings other than calcifications consistent with her diagnosis of Fahr's syndrome. Patient was seen by neurology on consultation, it was felt that her symptoms were probably related to hypotension , her blood pressure was noted to be low when she arrived in the emergency department. He is encouraged to keep hydrated by drinking more fluids. Patient continued to do well and was discharged home in a stable condition. Discharge Activity: Return to Normal Activity Home Medications: Medications to take at Discharge Aspirin [Adult Low Dose Aspirin EC] 81 mg PO DAILY 05/14/15 cyanocobalamin (vit B-12) 100 mcg tablet 100 mcg PO DAILY 05/11/17 diphenhydramine 25 mg tablet 50 mg PO DAILY 05/11/17 meloxicam 15 mg tablet 15 mg PO QHS #90 tab 05/11/17 trazodone 50 mg tablet 50 mg PO QHS #90 tab 05/11/17 Primary Care Physician: Maureen Lepe MD [STAFF PHYSICIAN] - In 1 Week Medical Necessity - Tobacco Use Smoking Status: Never smoker Tobacco Use: Non-smoker Meaningful Use Info Meaningful Use Diagnoses (Choose all that apply): None applicable Code Visit OBSV E&M: 44334 Observation care discharge
--- NOTE | 2017-09-27 11:03 | PCM.PN.NEU ---
Subjective: feels normal Objective: baseline dysarthria exam nonfocal - Physical Exam Vital Signs Temp Pulse Resp BP Pulse Ox 36.5 C L 70 16 165/70 H 98 09/27/17 08:40 09/27/17 08:40 09/27/17 08:40 09/27/17 08:40 09/27/17 08:40 Oxygen Flow Rate (L/min) 2 Oxygen Delivery Method Room Air Weight: 58.9 kg Body Mass Index (BMI) 22.3 Intake and Output for Last 24 Hours 09/25/17 09/26/17 09/27/17 23:59 23:59 23:59 Intake Total 317.3 / 317.3 954 / 954 Balance 317.3 / 317.3 954 / 954 Laboratory Tests Past 24 Hrs 09/27/17 05:55 Sodium 144 Potassium 4.4 Chloride 113 H Carbon Dioxide 25.0 Anion Gap 6 BUN 28 H Creatinine 1.14 H Estim Creat Clear Calc 40.22 Est GFR (MDRD) Af Amer 61 Est GFR (MDRD) Non-Af 50 L BUN/Creatinine Ratio 24.6 H Glucose 87 Calcium 8.7 Triglycerides 48 Cholesterol 136 LDL Cholesterol 83 VLDL Cholesterol 10 HDL Cholesterol 43 Current Home Med List Medication Instructions Recorded Confirmed Type Aspirin [Adult Low Dose Aspirin EC] 81 mg PO DAILY 05/14/15 09/26/17 History cyanocobalamin (vit B-12) 100 mcg 100 mcg PO DAILY 05/11/17 09/26/17 History tablet diphenhydramine 25 mg tablet 50 mg PO DAILY 05/11/17 09/26/17 History meloxicam 15 mg tablet 15 mg PO QHS #90 tab 05/11/17 09/26/17 Rx trazodone 50 mg tablet 50 mg PO QHS #90 tab 05/11/17 09/26/17 Rx Current Medications Generic Name Dose Route Start Last Admin Trade Name Freq PRN Reason Stop Dose Admin Acetaminophen 650 mg 09/26/17 15:36 Tylenol PO Q6H PRN PRN Headache/Temp>99F Aspirin 81 mg 09/27/17 08:00 09/27/17 08:41 Ecotrin PO 81 mg DAILYCM PRENELL Administration Atorvastatin Calcium 40 mg 09/26/17 22:00 09/26/17 21:12 Lipitor PO 40 mg QHS PERNELL Administration Diphenhydramine HCl 50 mg 09/27/17 10:00 09/27/17 08:42 Benadryl PO 50 mg DAILY PERNELL Administration Heparin Sodium (Porcine) 5,000 unit 09/26/17 22:00 09/27/17 05:51 Heparin Na SC 5,000 u Q8 PERNELL Administration Sodium Chloride 1,000 mls @ 75 mls/hr 09/26/17 15:36 09/27/17 08:40 IV 75 mls/hr .[id number] PERNELL Administration Magnesium Hydroxide 30 ml 09/26/17 15:36 Milk Of Magnesia PO DAILY PRN Constipation Meloxicam 15 mg 09/26/17 22:00 09/26/17 21:12 Mobic PO 15 mg QHS PERNELL Administration Metoprolol Tartrate 5 mg 09/26/17 18:16 Lopressor (Beta Finesse) IV Q6H PRN PRN For HR>110, hold for SBP<110 Nutritional Formula (Lactose Free) 120 ml 09/26/17 18:00 09/27/17 08:42 Ensure Enlive PO 120 ml 4X/DAY PERNELL Administration Ondansetron HCl 4 mg 09/26/17 15:36 Zofran IV Q6H PRN PRN NAUSEA/VOMITING Sodium Chloride 5 - 30 ml 09/26/17 16:39 IV UD PRN SALINE FLUSH Trazodone HCl 50 mg 09/26/17 22:00 09/26/17 21:12 Desyrel PO 50 mg QHS PERNELL Administration Medical Necessity - Tobacco Use Smoking Status: Never smoker Tobacco Use: Non-smoker Assessment/Plan 1. Presyncope: Blood pressure is noted to be low when she arrived in the emergency department. Recommend further evaluation for low blood pressure. There is no cause evident at this point. Is no evidence of stroke symptoms at this point, therefore no indication for TPA.mri reviewed, no acute, ok to dc. ensure adequate hydration at home. 2. Fahrs disease: Chronic stable
--- NOTE | 2017-09-27 11:06 | CASEMGMT ---
See assessment. SW met w/pt and in room in regard to prior level of function and discharge plan. Pt was independent prior to admission, does do the driving and they have a cleaning person. Pt anticipates being able to return home at discharge w/assist from if needed, is agreeable to home health for PT and nursing. Pt has no history of home health, does not state a preference for agency. Pt agreeable to referral to [facility]. SW called [facility], spoke w/Nikita. She will come see pt today. SW let pt and know that [facility] can take pt and Nikita from [facility] will come to see pt today. SW also let RN know that Nikita will come in to see pt today. SW will give Nikita the order and face to face when she gets here. No further needs anticipated. CONSTANTINO Dover, SK[employer]ER
== END 2017-09-27 12:50 | disposition home health service (06) | DRG 315 ==
LOC: ED 13:48 → PCU 14:53
PROVIDERS: Admitting Provider Hospitalist; Emergency Provider Emergency Medicine; Family Provider Internal Medicine; PCP Internal Medicine; Visit Provider Internal Medicine
DX: I95.9 Hypotension, unspecified (principal); G23.8 Other specified degenerative diseases of basal ganglia; E86.0 Dehydration; I10 Essential (primary) hypertension; N32.81 Overactive bladder; M54.9 Dorsalgia, unspecified; G89.29 Other chronic pain; Z79.82 Long term (current) use of aspirin; Z79.899 Other long term (current) drug therapy; Z90.710 Acquired absence of both cervix and uterus
CPT/HCPCS: 70450; 70551; 71045; 80048; 80061; 82962; 84484; 85025; 85610; 85730; 93005; 97162; 97166; 97802; 99285; J7030; A4216

== ENCOUNTER 2017-10-01 09:49 | Observation (INO) | payer MEDICARE, OTHER, SELFPAY ==
[2017-10-01] VITALS (12 sets, daily range): BP systolic 107–164; BP diastolic 62–105; PULSE 59–131; RESP 14–21; TEMP 36.6; O2SAT 94–100; BMI 23.1; BMI 22.4
--- NOTE | 2017-10-01 10:12 | EKG12_ITS ---
Test Reason : SYNCOPE Blood Pressure : / mmHG Vent. Rate : 108 BPM Atrial Rate : 093 BPM P-R Int : 000 ms QRS Dur : 128 ms QT Int : 358 ms P-R-T Axes : 000 046 -14 degrees QTc Int : 479 ms Wide QRS rhythm with occasional Premature ventricular complexes Right bundle branch block T wave abnormality, consider inferior ischemia Abnormal ECG Confirmed by CHANG MCDONNELL, PRAFUL ([id number]), communications editor KOBY CONNER ([id number]) on 10/03/2017 3:27:42 PM Referred By: WILLIAM Confirmed By:PRAFUL DOWNING MD
--- NOTE | 2017-10-01 10:12 | RAD_ITS ---
STUDY: X-RAY CHEST REASON FOR EXAM: Female, 67 years old. Syncope TECHNIQUE: Single AP portable view of the chest. COMPARISON: 09/26/2017 FINDINGS: The lungs are clear and expanded. There is no demonstrated pleural abnormality. Normal size heart. Normal mediastinum and kary. Normal visualized pulmonary arteries. Normal visualized aortic arch and descending thoracic aorta. There are diffuse degenerative changes of the visualized thoracic spine. Normal visualized ribs, clavicles, and shoulders. There is no demonstrated abnormality of the visualized soft tissue structures of the upper abdomen. RAD/Chest 1 View (Portable) IMPRESSION: Degenerative changes, as described above. No demonstrated acute cardiopulmonary process. Electronically Signed: Kasi Yen DO at 10:55 EDT Tel , Service support ,
[2017-10-01 10:40] LABS: Absolute Lymphocyte Count 1.07 X10^3/ul (0.83-4.51); Absolute Neutrophil Count 4.3 X10^3/uL (2.0-7.7); Basophil# 0.02 X10^3/uL; Basophil% 0.3 % (0-1); Eosinophil# 0.13 X10^3/uL; Eosinophils% 2.2 % (0-5); Hematocrit 47.3 % (37-47); Hemoglobin 16.3 g/dl (12.0-15.0); Lymphocyte # 1.07 X10^3/ul (4.0); Lymphocyte % 17.9 % (19-41); Mean Corp Hgb Conc 34.5 g/gl (32-36); Mean Corpuscular Hgb 31.5 pg (27.0-32.0); Mean Corpuscular Volume 91.5 fL (81-99); Monocyte# 0.47 X10^3/uL; Monocyte% 7.9 % (0-10); Neutrophil # 4.29 X10^3/uL (2.7-7.7); Neutrophil % 71.7 % (47-70); POSITIVE COUNT NO; POSITIVE DIFFERENTIAL NO; POSITIVE MORPHOLOGY NO; Platelet Count 133 K/mm3 (150-450); RBC Distribution Width CV 12.4 % (11.6-14.6); RBC Distribution Width SD 40.6 fl (35.1-43.9); Red Blood Count 5.17 M/mm3 (4.2-5.4)
[2017-10-01 10:55] LABS: Anion Gap 4 (5-15); BUN 26 mg/dL (7-18); BUN/Creat Ratio 20.3 RATIO (10-20); Calcium,Total 10.4 mg/dL (8.5-10.1); Chloride 109 mmol/L (98-107); Creatinine, Serum 1.28 mg/dL (0.55-1.02); EST Glomerular Filtration Rate 44 mL/min (>60); Est Glom Filt Rate - Afr Amer 53 mL/min (>60); Estimated Creatinine Clearance 35.82 ml/min; Glucose 89 mg/dL (74-106); Potassium 3.7 mmol/L (3.5-5.1); Sodium Level 142 mmol/L (136-145); Thyroid Stim Hormone (TSH) 4.63 uIU/mL (0.358-3.74)
[2017-10-01] MEDS: 0.9% Normal Saline 1,000 ML 1000 ML IV (11:08)
--- NOTE | 2017-10-01 11:14 | EKG12_ITS ---
Test Reason : REPEAT Blood Pressure : / mmHG Vent. Rate : 098 BPM Atrial Rate : 086 BPM P-R Int : 124 ms QRS Dur : 078 ms QT Int : 424 ms P-R-T Axes : 042 018 031 degrees QTc Int : 541 ms Sinus rhythm with occasional and consecutive Premature ventricular complexes and Premature atrial com plexes with junctional escape complexes Low voltage QRS Consider right ventricular involvement in acute inferior infarct Abnormal ECG Confirmed by CHANG MCDONNELL, PRAFUL ([id number]), food expeditor KOBY CONNER ([id number]) on 10/03/2017 3:28:07 PM Referred By: WILLIAM Confirmed By:PRAFUL DOWNING MD
--- NOTE | 2017-10-01 11:49 | ED.DCSUM_ITS ---
- ER Visit Summary Date of Service: 10/01/17 Chief Complaint: Near syncope History of Present Illness: The patient is a [address] Rodriguez and Dr. Moreland. Patient reports that she sit up from the table from having breakfast was unable to walk because her legs were so wobbly. reports that he found her in the hallway on her knees. She was cold, clammy, sweaty, and drooling. She was not coming here and. However, she did not lose consciousness. He took her blood pressure and it was 80 systolic. Patient denies any chest pain or palpitations. No shortness of breath. She does complain of chills and a cough began approximately 2 weeks ago that is nonproductive. She has had nausea without vomiting. She does complain of generalized weakness. Physical Examination: Vitals: 98.0, 143/90, 131, 18, 98% on room air which is not hypoxic. General: Well-nourished and well-developed. Head: Normocephalic atraumatic. Neck: Supple, no lymphadenopathy. No JVD. Nontender. Cardiovascular: Tachycardic irregular rhythm. No murmurs. Respiratory: No respiratory distress. Clear to auscultation bilaterally. Abdominal: Soft, nontender, nondistended, normal bowel sounds. No guarding, rebound, or peritoneal signs. Back: Nontender. Extremities: Nontender, no edema. Full range of motion without any difficulty. Skin: Abrasions to her knees bilaterally. Neurologic: Alert and oriented ?3. Cranial nerves II through XII are intact. Normal strength and sensation. Slurred speech that is chronic per patient and . Psych: Normal affect. Test Results: EKG is A. fib at 108 with right bundle branch block. This is unchanged from September 262017. However, it is a change from September 27, 2017 when she was in sinus rhythm. CBC is more for an H&H of 16.3 and 47.3, platelets 133, segmented neutrophils 72, lymphocytes of 18. Chem-7 is more for chloride 109, BUN 26, creatinine 1.28, calcium 10.4. TSH is 4.63. Troponin is negative. Chest x-ray shows chronic changes. Repeat EKG is sinus at 98. Emergency Department Course and Treatment: Patient was given a 500 cc bolus of normal saline. She is resting comfortably. Treatment Plan: I suspect the patient's episode of near syncope today is secondary to her atrial fibrillation. This is new in onset. She did convert spontaneously in the emergency department. However, she was discussed with Dr. Rao and will be admitted for further evaluation and treatment. She will be discussed with the hospitalist as well. Disposition: Admitted in improved condition. Impression: 1. Atrial fibrillation with RVR and spontaneous conversion. 2. Near syncope. This note was generated with [employer] dictation software. It may contain incorrect words, spelling, and punctuation that were not noted in review of the chart prior to signing ED Disposition - Plan for ED Patient: Chief Complaint: Syncope Referrals: Kellee Rodriguez MD [Primary Care Provider] -
--- NOTE | 2017-10-01 12:17 | PCM.HP.STD ---
Problem List (1) Chronic back pain Status: Chronic Qualifiers: Back pain location: back pain in unspecified location Back pain laterality: unspecified Qualified Code(s): M54.9 - Dorsalgia, unspecified; G89.29 - Other chronic pain (2) Fahr's disease Status: Chronic (3) Overactive bladder Status: Chronic History of Present Illness Date of Admission: 10/01/17 Chief Complaint: Syncopal event The patient is a 67 y/o F w/ PMHx: Chronic Back Pain, Fahr's Disease following with neurologist Dr. Moreland, Overactive bladder, Suspected CKD stage III who presents to the [facility] ED on 10/01/17 wit history of standing up following breakfast intake with sudden onset lightheadedness, weakness, unable to walk, found per her spouse on her knees, diaphoretic, clammy, cold with SBP 80s. Upon ED presentation HR noted to be in the 130s with no visible p-waves thus concern for atrial fibrillation with return to appearance NSR with rate 80-90s without any treatment. Also, recent admission w/ EKG with cardiology over-read with atrial fibrillation. In the ED work-up included T 98, heart rate initially 131--> 77, BP 143/90, respiratory rate 18, 98% on room air, positive orthostatic, CBC w/ WBC 6, Hgb 16.3, Plts 133 without marked shift, BMP w/ Chl 109, BUN/Cr 26/1.28, Ca 10.4, Trop < 0.015, TSH 4.63. Cardiology, Dr. Rao consulted per ED, recommendation given history admission, evaluation for her syncope and atrial fibrillation w/ ECHO, enzyme trending, telemetry monitoring and stress testing. He also noted there may be a need for event monitor pending evaluation. In the ED patient administered NS. 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 Overactive bladder (Chronic) N32.81 Allergies clonidine Allergy (Verified 10/01/17 09:52) Rash propoxyphene napsylate [From Darvocet-N] Allergy (Verified 10/01/17 09:52) Rash triamcinolone Allergy (Verified 10/01/17 09:52) Rash Home Medications: Ambulatory Orders Medication Instructions Recorded Aspirin [Adult Low Dose Aspirin EC] 81 mg PO DAILY 05/14/15 cyanocobalamin (vit B-12) 100 mcg 1,000 mcg PO DAILY 05/11/17 tablet diphenhydramine 25 mg tablet 50 mg PO DAILY 05/11/17 Cholecalciferol (Vitamin D3) 2,000 unit PO DAILY 10/01/17 [Vitamin D3] Glucosamine/MSM/Chondroitin A 1 each PO BID 10/01/17 [Glucosamine Chondroit MSM Tab] Meloxicam [Mobic] 15 mg PO QHS 10/01/17 traZODone [Desyrel] 50 mg PO QHS 10/01/17 Surgical History: Surgical History (Last Reviewed 05/11/17 @ 11:00 by CATHERINE Blancas) History of back surgery Z98.890 History of hysterectomy Z98.890, Z90.710 History of tonsillectomy Z98.890, Z90.89 history of bladder sling Surgical History: - - Back surgery, hysterectomy, tonsillectomy, bladder sling. 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 Denies: Chills, Fever, Weight Change HEENT: Denies: Head Aches, Sinus Congestion, Sinus Drainage Cardiovascular: Reports: Light Headedness, Syncope. Denies: Chest Pain, Chest Pressure, Chest Tightness, Edema, Heaviness, Orthopnea, Palpitations, Paroxysmal Noc. Dyspnea Respiratory: Denies: Cough, Shortness of Breath, Shortness of breath at rest, Shortness of breath upon exertion, Sputum production, Wheezing Gastrointestinal: Denies: Abdominal Pain, Nausea, Vomiting Genitourinary: Reports: Frequency. Denies: Dysuria Musculoskeletal: Denies: Joint Pain, Joint Tenderness Skin: Denies: Rash, Wounds Neurological: Denies: Numbness, Tingling, Focal weakness Psychiatric: Denies: Anxiety, Depression, Homicidal Ideations, Suicidal Ideations Hematologic/ Lymphatic: Denies: Easy Bruising, Easy Bleeding VTE Information - Inpt Only VTE Present on Admission: No VTE Mechan Device Prophylaxis: SCD's VTE Pharm Prophylaxis ordered?: Yes Subjective: Seated upright in the bed, NAD. Objective: Physical Examination: General: awake, alert, oriented x 3 and cooperative, seated upright in the PCU bed in no apparent distress. Skin: normal color, turgor, no icterus, cyanosis. HEENT: AT/NC, EOMI, PERRLA, MMM, no carotid bruits or JVD noted. Lungs: CTA bilaterally, moderate effort, mild decrease BL bases, no rales, ronchi or wheezing. Heart: Regular rate and rhythm; no gallop, rub audible. Abdomen: soft, NTTP, ND, normal BS, no HSM. Extremities: no cyanosis, clubbing, or edema. Neurological: patient awake, alert, oriented x 3; cognitive function intact; pupils equally reactive to light and accomodation; cranial nerves II-XII grossly normal, moving all 4 extremities, chronic mild dysarthria and generalized mild 4-5/5 weakness, stable secondary to Fahr's disease. Psychiatric: affect appears normal, mildly flat affect, no acute evidence of depressive or anxiety feelings. - Physical Exam Vital Signs Temp Pulse Resp BP Pulse Ox 98 F 108 H 19 H 145/70 H 96 10/01/17 09:50 10/01/17 12:03 10/01/17 12:03 10/01/17 12:03 10/01/17 12:03 Oxygen Delivery Method Room Air Weight: 135 lb Body Mass Index (BMI) 23.1 Finger Stick Blood Glucose 110 Laboratory Tests Past 24 Hrs 10/01/17 10/01/17 10:23 10:23 WBC 6.0 RBC 5.17 Hgb 16.3 H Hct 47.3 H MCV 91.5 MCH 31.5 MCHC 34.5 RDW 12.4 RDW Differential 40.6 Plt Count 133 L MPV 11.0 Immature Gran % (Auto) 0.000 Neut % (Auto) 71.7 H Lymph % (Auto) 17.9 L Bent % (Auto) 7.9 Eos % (Auto) 2.2 Baso % (Auto) 0.3 Absolute Neuts (auto) 4.3 Absolute Lymphs (auto) 1.07 Total Counted Not Reportable Sodium 142 Potassium 3.7 Chloride 109 H Carbon Dioxide 29.0 Anion Gap 4 L BUN 26 H Creatinine 1.28 H Estim Creat Clear Calc 35.82 Est GFR (MDRD) Af Amer 53 L Est GFR (MDRD) Non-Af 44 L BUN/Creatinine Ratio 20.3 H Glucose 89 Calcium 10.4 H Troponin I < 0.015 TSH 4.63 H Assessment/Plan The patient is a 67 y/o F w/ PMHx: Chronic Back Pain, Fahr's Disease, Overactive bladder, Suspected CKD stage III who presents to the [facility] ED on 10/01/17 wit history of standing up following breakfast intake with sudden onset lightheadedness, weakness, unable to walk, found per her spouse on her knees, diaphoretic, clammy, cold with SBP 80s. (1) Near Syncopal Events secondary to Suspected ? New Onset, Paroxsymal atrial fibrillation and Orthostasis: Prior recent admission w/ ED EKG over-read per Cardiology w/ noted atrial fibrillation w/ RVR, recurrent EKG appears atrial fibrillation and rate improved drastically in the ED 130-140 HR-->80-90 with NSR appearance, CXR without acute process, trop normal x 1. Will admit to PCU, maintain on telemetry, obtain cardiac enzyme serial set, obtain magnesium level, obtain ECHO, TSH level elevated per ED w/ pending FT4, given + orthostatic VS in the ED continue IVFs and repeat orthostatic assessment in AM. Add oral cardizem but defer regimen to Cardiology per their preference. Given unclear timeline of events in case of future option for cardiversion will place on therapeutic lovenox pending Cardiology evaluation. Additionally will request AM nuclear stress testing per Dr. Rao recommendation. Cardiology consultation pending. (2) CKD stage III: Admission BUN/Cr 11/05.28, appears baseline Cr over the last year, normal function in 2017, trend. (3) Elevated TSH: TSH 4.63, will obtain FT4. (4) Fahr's Disease: Recent evaluation prior admission for possible neurological etiology for syncope, evaluated per Neurology. (5) Chronic Back Pain: Given anticoagulation will hold daily mobic, fall precautions, position changes as needed, PRN pain regimen. (6) DVT Prophylaxis: SCDs, therapeutic lovenox. Code Visit OBSV E&M: [id number] Initial observation care L3
--- NOTE | 2017-10-01 12:37 | HP.PCM_ITS ---
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 Upon ED presentation HR noted to be in the 130s with no visible p-waves thus concern for atrial fibrillation with return to appearance NSR with rate 80-90s without any treatment. Also, recent admission w/ EKG with cardiology over-read with atrial fibrillation. In the ED work-up included T 98, heart rate initially 131-- > 77, BP 143/90, respiratory rate 18, 98% on room air, positive orthostatic, CBC w/ WBC 6, Hgb 16.3, Plts 133 without marked shift, BMP w/ Chl 109, BUN/Cr 26 /1.28, Ca 10.4, Trop < 0.015, TSH 4.63. Cardiology, Dr. Rao consulted per ED , recommendation given history admission, evaluation for her syncope and atrial fibrillation w/ ECHO, enzyme trending, telemetry monitoring and stress testing. He also noted there may be a need for event monitor pending evaluation. In the ED patient administered NS. 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 Overactive bladder (Chronic) N32.81 Allergies clonidine Allergy (Verified 10/01/17 09:52) Rash propoxyphene napsylate [From Darvocet-N] Allergy (Verified 10/01/17 09:52) Rash triamcinolone Allergy (Verified 10/01/17 09:52) Rash Home Medications: Ambulatory Orders Medication Instructions Recorded Aspirin [Adult Low Dose Aspirin EC] 81 mg PO DAILY 05/14/15 cyanocobalamin (vit B-12) 100 mcg 1,000 mcg PO DAILY 05/11/17 tablet diphenhydramine 25 mg tablet 50 mg PO DAILY 05/11/17 Cholecalciferol (Vitamin D3) 2,000 unit PO DAILY 10/01/17 [Vitamin D3] Glucosamine/MSM/Chondroitin A 1 each PO BID 10/01/17 [Glucosamine Chondroit MSM Tab] Meloxicam [Mobic] 15 mg PO QHS 10/01/17 traZODone [Desyrel] 50 mg PO QHS 10/01/17 Surgical History: Surgical History (Last Reviewed 05/11/17 @ 11:00 by CATHERINE Blancas) History of back surgery Z98.890 History of hysterectomy Z98.890, Z90.710 History of tonsillectomy Z98.890, Z90.89 history of bladder sling Surgical History: - - Back surgery, hysterectomy, tonsillectomy, bladder sling. 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 Denies: Chills, Fever, Weight Change HEENT: Denies: Head Aches, Sinus Congestion, Sinus Drainage Cardiovascular: Reports: Light Headedness, Syncope. Denies: Chest Pain, Chest Pressure, Chest Tightness, Edema, Heaviness, Orthopnea, Palpitations, Paroxysmal Noc. Dyspnea Respiratory: Denies: Cough, Shortness of Breath, Shortness of breath at rest, Shortness of breath upon exertion, Sputum production, Wheezing Gastrointestinal: Denies: Abdominal Pain, Nausea, Vomiting Genitourinary: Reports: Frequency. Denies: Dysuria Musculoskeletal: Denies: Joint Pain, Joint Tenderness Skin: Denies: Rash, Wounds Neurological: Denies: Numbness, Tingling, Focal weakness Psychiatric: Denies: Anxiety, Depression, Homicidal Ideations, Suicidal Ideations Hematologic/ Lymphatic: Denies: Easy Bruising, Easy Bleeding VTE Information - Inpt Only VTE Present on Admission: No VTE Mechan Device Prophylaxis: SCD's VTE Pharm Prophylaxis ordered?: Yes Subjective: Seated upright in the bed, NAD. Objective: Physical Examination: General: awake, alert, oriented x 3 and cooperative, seated upright in the PCU bed in no apparent distress. Skin: normal color, turgor, no icterus, cyanosis. HEENT: AT/NC, EOMI, PERRLA, MMM, no carotid bruits or JVD noted. Lungs: CTA bilaterally, moderate effort, mild decrease BL bases, no rales, ronchi or wheezing. Heart: Regular rate and rhythm; no gallop, rub audible. Abdomen: soft, NTTP, ND, normal BS, no HSM. Extremities: no cyanosis, clubbing, or edema. Neurological: patient awake, alert, oriented x 3; cognitive function intact; pupils equally reactive to light and accomodation; cranial nerves II-XII grossly normal, moving all 4 extremities, chronic mild dysarthria and generalized mild 4-5/5 weakness, stable secondary to Fahr's disease. Psychiatric: affect appears normal, mildly flat affect, no acute evidence of depressive or anxiety feelings. - Physical Exam Vital Signs Temp Pulse Resp BP Pulse Ox 98 F 108 H 19 H 145/70 H 96 10/01/17 09:50 10/01/17 12:03 10/01/17 12:03 10/01/17 12:03 10/01/17 12:03 Oxygen Delivery Method Room Air Weight: 135 lb Body Mass Index (BMI) 23.1 Finger Stick Blood Glucose 110 Laboratory Tests Past 24 Hrs 10/01/17 10/01/17 10:23 10:23 WBC 6.0 RBC 5.17 Hgb 16.3 H Hct 47.3 H MCV 91.5 MCH 31.5 MCHC 34.5 RDW 12.4 RDW Differential 40.6 Plt Count 133 L MPV 11.0 Immature Gran % (Auto) 0.000 Neut % (Auto) 71.7 H Lymph % (Auto) 17.9 L Davie % (Auto) 7.9 Eos % (Auto) 2.2 Baso % (Auto) 0.3 Absolute Neuts (auto) 4.3 Absolute Lymphs (auto) 1.07 Total Counted Not Reportable Sodium 142 Potassium 3.7 Chloride 109 H Carbon Dioxide 29.0 Anion Gap 4 L BUN 26 H Creatinine 1.28 H Estim Creat Clear Calc 35.82 Est GFR (MDRD) Af Amer 53 L Est GFR (MDRD) Non-Af 44 L BUN/Creatinine Ratio 20.3 H Glucose 89 Calcium 10.4 H Troponin I < 0.015 TSH 4.63 H Assessment/Plan The patient is a 67 y/o F w/ PMHx: Chronic Back Pain, Fahr's Disease, Overactive bladder, Suspected CKD stage III who presents to the [facility] ED on wit history of standing up following breakfast intake with sudden onset lightheadedness, weakness, unable to walk, found per her spouse on her knees, diaphoretic, clammy, cold with SBP 80s. (1) Near Syncopal Events secondary to Suspected ? New Onset, Paroxsymal atrial fibrillation and Orthostasis: Prior recent admission w/ ED EKG over-read per Cardiology w/ noted atrial fibrillation w/ RVR, recurrent EKG appears atrial fibrillation and rate improved drastically in the ED 130-140 HR-->80-90 with NSR appearance, CXR without acute process, trop normal x 1. Will admit to PCU, maintain on telemetry, obtain cardiac enzyme serial set, obtain magnesium level , obtain ECHO, TSH level elevated per ED w/ pending FT4, given + orthostatic VS in the ED continue IVFs and repeat orthostatic assessment in AM. Add oral cardizem but defer regimen to Cardiology per their preference. Given unclear timeline of events in case of future option for cardiversion will place on therapeutic lovenox pending Cardiology evaluation. Additionally will request AM nuclear stress testing per Dr. Rao recommendation. Cardiology consultation pending. (2) CKD stage III: Admission BUN/Cr 11/05.28, appears baseline Cr over the last year, normal function in 2017, trend. (3) Elevated TSH: TSH 4.63, will obtain FT4. (4) Fahr's Disease: Recent evaluation prior admission for possible neurological etiology for syncope, evaluated per Neurology. (5) Chronic Back Pain: Given anticoagulation will hold daily mobic, fall precautions, position changes as needed, PRN pain regimen. (6) DVT Prophylaxis: SCDs, therapeutic lovenox. Code Visit OBSV E&M: 40768 Initial observation care L3
--- NOTE | 2017-10-01 15:10 | ECHOD_ITS ---
Reason For Study: AFIB Procedure This was a 2D Doppler, Color Flow transthoracic echocardiogram. The exam was of poor technical quality due to poor acoustic windows.. The study was technically difficult. Exam performed portable in patient room. Left Ventricle Based upon the 2D echocardiographic images obtained there appears to be grossly normal left ventricular size, wall motion, and systolic function. The estimated ejection fraction is 55 %. Unable to assess diastolic dysfunction. Right Ventricle Based upon the 2D echocardiographic images obtained there appears to be grossly normal right ventricular size and systolic function. Atria The left atrium is not well visualized. The right atrium is not well visualized. No doppler evidence for ASD. Mitral Valve There is no mitral annular calcification. Normal mitral valve. Trivial mitral valve insufficiency. Tricuspid Valve The tricuspid valve is not well visualized. Trivial tricuspid valve insufficiency. Unable to estimate RV systolic pressure/pulmonary artery pressure due to technically difficult study. Aortic Valve The aortic valve is not well visualized. Pulmonic Valve The pulmonic valve is not well visualized. Great Vessels The aortic root is not well visualized. Pericardium/Pleural No pericardial effusion. MMode/2D Measurements & Calculations LVIDd: 3.9 cm IVSd: 0.77 cm LVIDs: 2.6 cm LVPWd: 0.87 cm FS: 33.3 % Interpretation Summary The study was technically difficult. Based upon the 2D echocardiographic images obtained there appears to be grossly normal left ventricular size, wall motion, and systolic function. The estimated ejection fraction is 55 %. Trivial mitral valve insufficiency. Trivial tricuspid valve insufficiency. Unable to estimate RV systolic pressure/pulmonary artery pressure due to technically difficult study. Unable to assess diastolic dysfunction. Ordering Physician: Arabella Gil Referring Physician: CLAUDIA ENGLE Performed By: Caitlin Varma, ADARSHCS, RVT
[2017-10-01] MEDS: 0.9% Normal Saline 1,000 ML 100 ML IV (15:40)
[2017-10-01] MEDS: dilTIAZem CD 120 MG Capsule PO (15:52)
--- NOTE | 2017-10-01 17:44 | PCM.CONS.C ---
Reason for Consult Date of Consultation: 10/01/17 Reason for Consultation: Near syncopal spell History of Present Illness: The patient is a 67 year old F with a previous medical history significant Fahrs syndrome who presented today because her found her slumped against the door to the bathroom. She says that she was walking to the bathroom and she felt that she was going to pass out. When her found her she was noted to be quite clammy and at that time the EMS saw her blood pressure was in the 80s. She had a similar episode approximately a week ago was admitted to the hospital had a CT and MRI which did not demonstrate any evidence of cerebrovascular accident. At that time she was also noted to be in a tachycardia with a EKG being read as being in atrial fibrillation with a right bundle branch block. She has had no chest pain shortness of breath or paroxysmal nocturnal dyspnea or pedal edema she has had no neck arm or jaw discomfort suggest angina she has not been on any antihypertensive therapy. She was subsequently discharged to be followed up as an outpatient. On this visit as well she has had no other symptoms other than a premonition of going to pass out. In the emergency room she was noted once again to be tachycardic with a right bundle branch block pattern. No atrial fibrillation however was noted and was likely a junctional tachycardia with a rate of approximately 108 bpm. Follow-up electrocardiogram demonstrated sinus rhythm with a rate of 90 bpm with a right bundle branch block. [] Past Medical History Allergies/Adverse Reactions: Allergies clonidine Allergy (Verified 10/01/17 09:52) Rash propoxyphene napsylate [From Darvocet-N] Allergy (Verified 10/01/17 09:52) Rash triamcinolone Allergy (Verified 10/01/17 09:52) Rash Home Medications: Ambulatory Orders Medication Instructions Recorded Aspirin [Adult Low Dose Aspirin EC] 81 mg PO DAILY 05/14/15 cyanocobalamin (vit B-12) 100 mcg 1,000 mcg PO DAILY 05/11/17 tablet diphenhydramine 25 mg tablet 50 mg PO DAILY 05/11/17 Cholecalciferol (Vitamin D3) 2,000 unit PO DAILY 10/01/17 [Vitamin D3] Glucosamine/MSM/Chondroitin A 1 each PO BID 10/01/17 [Glucosamine Chondroit MSM Tab] Meloxicam [Mobic] 15 mg PO QHS 10/01/17 traZODone [Desyrel] 50 mg PO QHS 10/01/17 Past Medical History (Chronic Problems): Chronic Problems (Last Updated 09/26/17 @ 14:34 by Dayne Cintron MD) Chronic back pain (Chronic) Fahr's disease (Chronic) Overactive bladder (Chronic) Surgical History: - - Back surgery, hysterectomy, tonsillectomy, bladder sling. 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 Denies: Chest Discomfort, Shortness of Breath, Orthopnea, PND, Peripheral Edema, Palpitations, Lightheadedness, Dizziness, Syncope Respiratory: Denies: Cough, Sputum Production, Hemoptysis Gastrointestinal: Denies: Hematemesis, Hematochezia, Melena Genitourinary: Denies: Dysuria, Hematuria Skin: Denies: Rash Subjectve: Pleasant lady in no distress Objective: Vital Signs Temp Pulse Resp BP Pulse Ox 97.8 F 61 16 144/105 H 98 10/01/17 14:35 10/01/17 14:54 10/01/17 14:35 10/01/17 14:35 10/01/17 15:24 Oxygen Delivery Method Room Air Weight: 130 lb 8.218 oz Body Mass Index (BMI) 22.4 General: Awake, Alert, Oriented x 3 HEENT: PERRL, EOMI, Sclera Non Icteric Neck: Supple, Good ROM, No Lymph Node Enlargement Lungs: Clear to auscultation Cardiovascular: Regular Rhythm, Normal S1, Normal S2, No Murmurs, No Rubs, No Gallops Vascular: No Carotid Bruits, Normal Femoral Pulses, Normal Radial Pulses, Normal Dorsalis Pedal Pulse, Normal Posterior Tibial Pulses Abdomen: Bowel Sounds Present, Soft, Non Tender, No HSM, No Organomegaly Extremities: No Cyanosis, No Clubbing, No edema Neurological: No Focal Motor or Sensory Deficit, Facial Droop, Slurred Speech 10/01/17 16:09: Troponin I 0.023 Rhythm: EKG: ECHO: Stress Test: Cardiac Cath: PCI: CT Surgery: Holter monitor: EPS: PPM: CXR: Chest CT Scan: Assessment/Plan 1. Presyncopal episode. The etiology of her presyncopal episode is unclear but is likely secondary to dehydration. I do not see any definitive evidence of atrial fibrillation. It appears that she has a junctional tachycardia. I doubt that this is an atrial flutter with block. My recommendation will be to hold off on any calcium channel madison or beta-madison and continue to observe her. She appears to have minimal troponin elevation which does not appear to have significant relation to her syncope. I would recommend observing it for now. I do not think that a stress test is beneficial at this time. Echocardiogram should be performed to assess her left ventricular function and exclude any occult valvular disease not noted on auscultation. If no etiology is found I would recommend a 30 day event monitor or an implantable loop recorder. Will institute aggressive hydration. Thank you for allowing me to participate in the care of your patient. Please don't hesitate to call if any issues arise
--- NOTE | 2017-10-01 17:50 | CON.PCM_ITS ---
Reason for Consult Date of Consultation: 10/01/17 Reason for Consultation: Near syncopal spell History of Present Illness: The patient is a 67 year old F with a previous medical history significant Fahrs syndrome who presented today because her found her slumped against the door to the bathroom. She says that she was walking to the bathroom and she felt that she was going to pass out. When her found her she was noted to be quite clammy and at that time the EMS saw her blood pressure was in the 80s. She had a similar episode approximately a week ago was admitted to the hospital had a CT and MRI which did not demonstrate any evidence of cerebrovascular accident. At that time she was also noted to be in a tachycardia with a EKG being read as being in atrial fibrillation with a right bundle branch block. She has had no chest pain shortness of breath or paroxysmal nocturnal dyspnea or pedal edema she has had no neck arm or jaw discomfort suggest angina she has not been on any antihypertensive therapy. She was subsequently discharged to be followed up as an outpatient. On this visit as well she has had no other symptoms other than a premonition of going to pass out. In the emergency room she was noted once again to be tachycardic with a right bundle branch block pattern. No atrial fibrillation however was noted and was likely a junctional tachycardia with a rate of approximately 108 bpm. Follow-up electrocardiogram demonstrated sinus rhythm with a rate of 90 bpm with a right bundle branch block. [] Past Medical History Allergies/Adverse Reactions: Allergies clonidine Allergy (Verified 10/01/17 09:52) Rash propoxyphene napsylate [From Darvocet-N] Allergy (Verified 10/01/17 09:52) Rash triamcinolone Allergy (Verified 10/01/17 09:52) Rash Home Medications: Ambulatory Orders Medication Instructions Recorded Aspirin [Adult Low Dose Aspirin EC] 81 mg PO DAILY 05/14/15 cyanocobalamin (vit B-12) 100 mcg 1,000 mcg PO DAILY 05/11/17 tablet diphenhydramine 25 mg tablet 50 mg PO DAILY 05/11/17 Cholecalciferol (Vitamin D3) 2,000 unit PO DAILY 10/01/17 [Vitamin D3] Glucosamine/MSM/Chondroitin A 1 each PO BID 10/01/17 [Glucosamine Chondroit MSM Tab] Meloxicam [Mobic] 15 mg PO QHS 10/01/17 traZODone [Desyrel] 50 mg PO QHS 10/01/17 Past Medical History (Chronic Problems): Chronic Problems (Last Updated 09/26/17 @ 14:34 by Dayne Cintron MD) Chronic back pain (Chronic) Fahr's disease (Chronic) Overactive bladder (Chronic) Surgical History: - - Back surgery, hysterectomy, tonsillectomy, bladder sling. 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 Denies: Chest Discomfort, Shortness of Breath, Orthopnea, PND, Peripheral Edema, Palpitations, Lightheadedness, Dizziness, Syncope Respiratory: Denies: Cough, Sputum Production, Hemoptysis Gastrointestinal: Denies: Hematemesis, Hematochezia, Melena Genitourinary: Denies: Dysuria, Hematuria Skin: Denies: Rash Subjectve: Pleasant lady in no distress Objective: Vital Signs Temp Pulse Resp BP Pulse Ox 97.8 F 61 16 144/105 H 98 10/01/17 14:35 10/01/17 14:54 10/01/17 14:35 10/01/17 14:35 10/01/17 15:24 Oxygen Delivery Method Room Air Weight: 130 lb 8.218 oz Body Mass Index (BMI) 22.4 General: Awake, Alert, Oriented x 3 HEENT: PERRL, EOMI, Sclera Non Icteric Neck: Supple, Good ROM, No Lymph Node Enlargement Lungs: Clear to auscultation Cardiovascular: Regular Rhythm, Normal S1, Normal S2, No Murmurs, No Rubs, No Gallops Vascular: No Carotid Bruits, Normal Femoral Pulses, Normal Radial Pulses, Normal Dorsalis Pedal Pulse, Normal Posterior Tibial Pulses Abdomen: Bowel Sounds Present, Soft, Non Tender, No HSM, No Organomegaly Extremities: No Cyanosis, No Clubbing, No edema Neurological: No Focal Motor or Sensory Deficit, Facial Droop, Slurred Speech 10/01/17 16:09: Troponin I 0.023 Rhythm: EKG: ECHO: Stress Test: Cardiac Cath: PCI: CT Surgery: Holter monitor: EPS: PPM: CXR: Chest CT Scan: Assessment/Plan 1. Presyncopal episode. The etiology of her presyncopal episode is unclear but is likely secondary to dehydration. I do not see any definitive evidence of atrial fibrillation. It appears that she has a junctional tachycardia. I doubt that this is an atrial flutter with block. My recommendation will be to hold off on any calcium channel madison or beta-madison and continue to observe her. * She appears to have minimal troponin elevation which does not appear to have significant relation to her syncope. I would recommend observing it for now. I do not think that a stress test is beneficial at this time. * Echocardiogram should be performed to assess her left ventricular function and exclude any occult valvular disease not noted on auscultation. * If no etiology is found I would recommend a 30 day event monitor or an implantable loop recorder. * Will institute aggressive hydration. * * Thank you for allowing me to participate in the care of your patient. Please don't hesitate to call if any issues arise
[2017-10-01 20:25] LABS: Magnesium 1.9 mg/dL (1.6-2.6); T4 Free Direct 0.93 ng/dL (0.76-1.46); Thyroid Stim Hormone (TSH) 2.04 uIU/mL (0.358-3.74)
[2017-10-01] MEDS: traZODone 50 MG Tablet PO (21:06)
[2017-10-01] MEDS: hydrALAZINE 20 MG/ML Vial 10 MG IV (21:32)
[2017-10-02] VITALS (8 sets, daily range): BP systolic 135–151; BP diastolic 67–85; PULSE 51–75; RESP 16–18; TEMP 36.5–36.7; O2SAT 95–97
[2017-10-02] MEDS: 0.9% Normal Saline 1,000 ML 100 ML IV (02:08)
[2017-10-02 06:15] LABS: Absolute Lymphocyte Count 1.16 X10^3/ul (0.83-4.51); Absolute Neutrophil Count 2.8 X10^3/uL (2.0-7.7); Basophil# 0.03 X10^3/uL; Basophil% 0.7 % (0-1); Eosinophil# 0.13 X10^3/uL; Eosinophils% 2.8 % (0-5); Hematocrit 41.4 % (37-47); Hemoglobin 14.2 g/dl (12.0-15.0); Lymphocyte # 1.16 X10^3/ul (4.0); Lymphocyte % 25.3 % (19-41); Mean Corp Hgb Conc 34.3 g/gl (32-36); Mean Corpuscular Hgb 31.1 pg (27.0-32.0); Mean Corpuscular Volume 90.8 fL (81-99); Mean Platelet Vol. 10.8 fl (6.2-12.0); Monocyte# 0.43 X10^3/uL; Monocyte% 9.4 % (0-10); Neutrophil # 2.83 X10^3/uL (2.7-7.7); Neutrophil % 61.8 % (47-70); Platelet Count 123 K/mm3 (150-450); RBC Distribution Width CV 12.1 % (11.6-14.6); RBC Distribution Width SD 39.7 fl (35.1-43.9); Red Blood Count 4.56 M/mm3 (4.2-5.4); White Blood Count 4.6 K/mm3 (4.4-11.0)
[2017-10-02 06:16] LABS: POSITIVE COUNT NO; POSITIVE DIFFERENTIAL NO; POSITIVE MORPHOLOGY NO
[2017-10-02] MEDS: Enoxaparin 40 MG/0.4 ML Syringe SC (06:23)
[2017-10-02 06:42] LABS: ALB/GLOB Ratio 1.2 RATIO (0.9-2.4); AST(SGOT) 22 U/L (15-37); Alanine Aminotransfer ALT/SGPT 21 U/L (13-56); Albumin, Serum 3.3 g/dL (3.2-5.0); Alkaline Phosphatase 77 U/L (45-117); Anion Gap 7 (5-15); BUN 21 mg/dL (7-18); BUN/Creat Ratio 21.8 RATIO (10-20); Calcium,Total 8.9 mg/dL (8.5-10.1); Chloride 112 mmol/L (98-107); Cholesterol 129 mg/dL (200); Creatinine, Serum 0.96 mg/dL (0.55-1.02); EST Glomerular Filtration Rate 61 mL/min (>60); Est Glom Filt Rate - Afr Amer 74 mL/min (>60); Estimated Creatinine Clearance 47.76 ml/min; Globulin 2.8 g/dL (2.2-4.2); Glucose 90 mg/dL (74-106); High Density Lipoprotein 46 mg/dL; Potassium 3.8 mmol/L (3.5-5.1); Protein, Total 6.1 g/dL (6.4-8.2); Sodium Level 143 mmol/L (136-145); Triglycerides 52 mg/dL; Very Low Density Lipoprotein 10 mg/dL (5-40)
--- NOTE | 2017-10-02 07:51 | PN.CARD_ITS ---
Subjectve: Patient seen and evaluated feeling better Objective: Vital Signs Temp Pulse Resp BP Pulse Ox 97.7 F L 51 L 16 135/85 H 97 10/02/17 06:15 10/02/17 07:04 10/02/17 06:15 10/02/17 06:15 10/02/17 06:15 Oxygen Delivery Method Room Air Weight: 130 lb 8.218 oz Body Mass Index (BMI) 22.4 Orthostatic Vital Signs Start: 10/02/17 06:15 Freq: q24h Status: Active Protocol: Activity Type Activity Date Activity User E-Sign Co-Sign Detail Recorded Client Recorded Date Recorded By Document 10/02/17 06:15 PAL [id number] 10/02/17 06:19 PAL 10/02/17 06:15 Orthostatic Vitals Standing -Blood Pressure (90/60-120/80) 140/74 H -Extremity Use Right Arm -Pulse Rate (60-100) 73 Sitting -Blood Pressure (90/60-120/80) 151/71 H -Extremity Use Right Arm -Pulse Rate (60-100) 57 L Lying -Blood Pressure (90/60-120/80) 135/85 H -Extremity Use Right Arm -Pulse Rate (60-100) 57 L Intake and Output for Last 24 Hours 09/30/17 10/01/17 10/02/17 23:59 23:59 23:59 Intake Total 1330 / 1330 629 / 629 Balance 1330 / 1330 629 / 629 General: Awake, Alert, Oriented x 3 HEENT: PERRL, EOMI, Sclera Non Icteric Neck: Supple, Good ROM, No Lymph Node Enlargement Lungs: Clear to auscultation Cardiovascular: Regular Rhythm, Normal S1, Normal S2, No Murmurs, No Rubs, No Gallops Vascular: No Carotid Bruits, Normal Femoral Pulses, Normal Radial Pulses, Normal Dorsalis Pedal Pulse, Normal Posterior Tibial Pulses Abdomen: Bowel Sounds Present, Soft, Non Tender, No HSM, No Organomegaly Extremities: No Cyanosis, No Clubbing, No edema Neurological: No Focal Motor or Sensory Deficit 10/01/17 16:09: Troponin I 0.023 10/01/17 18:52: Troponin I 0.018 10/02/17 05:55: WBC 4.6, RBC 4.56, Hgb 14.2, Hct 41.4, MCV 90.8, MCH 31.1, MCHC 34.3, RDW 12.1, RDW Differential 39.7, Plt Count 123 L, MPV 10.8, Immature Gran % (Auto) 0.000, Neut % (Auto) 61.8, Lymph % (Auto) 25.3, [place] % (Auto) 9.4, Eos % (Auto) 2.8, Baso % (Auto) 0.7, Absolute Neuts (auto) 2.8, Total Counted Not Reportable 10/02/17 05:55: Sodium 143, Potassium 3.8, Chloride 112 H, Carbon Dioxide 24.0, Anion Gap 7, BUN 21 H, Creatinine 0.96, Est GFR (MDRD) Af Amer 74, Est GFR (MDRD ) Non-Af 61, BUN/Creatinine Ratio 21.8 H, Glucose 90, Calcium 8.9, Total Bilirubin 1.10 H, Triglycerides 52, Cholesterol 129, LDL Cholesterol 73, VLDL Cholesterol 10, HDL Cholesterol 46 Rhythm: EKG: ECHO: Stress Test: Cardiac Cath: PCI: CT Surgery: Holter monitor: EPS: PPM: CXR: Chest CT Scan: Medical Necessity - Tobacco Use Smoking Status: Never smoker Tobacco Use: Non-smoker Assessment/Plan 1. Presyncopal episode. The etiology of her presyncopal episode is unclear but is likely secondary to dehydration. I do not see any definitive evidence of atrial fibrillation. It appears that she has a junctional tachycardia. I doubt that this is an atrial flutter with block. My recommendation will be to hold off on any calcium channel madison or beta-madison and continue to observe her. * She appears to have minimal troponin elevation which does not appear to have significant relation to her syncope. I would recommend observing it for now. I do not think that a stress test is beneficial at this time. * Echocardiogram should be performed to assess her left ventricular function and exclude any occult valvular disease not noted on auscultation. * If no etiology is found I would recommend a 30 day event monitor or an implantable loop recorder. * Will institute aggressive hydration. * * Thank you for allowing me to participate in the care of your patient. Please don't hesitate to call if any issues arise
[2017-10-02] MEDS: Aspirin 81 MG TAB.CHEW PO (08:05)
[2017-10-02] MEDS: 0.9% Normal Saline 1,000 ML 125 ML IV (08:09)
--- NOTE | 2017-10-02 12:29 | PCM.DC ---
- Discharge Diagnoses Current Active Problems: (1) Near Syncopal Events suspected likely secondary to dehydration (orthostatic) with Suspected Junctional Tachycardia, PAF RULED OUT (2) CKD stage III (3) Fahr's Disease (4) Chronic Back Pain You will use the following diet at home:: Regular Your food should be the consistency of: Regular Your liquids should be the consistency of: Regular/Thin Discharge Activity: - - Please maintain appropriate hydration, practice fall precautions, closely follow-up with your primary care physician as well as Cardiology to review event monitor. May resume sexual activity in: No Restrictions Weight Bearing Status: Weight bearing as tolerated Call your doctor if you observe: Fever of 101 or Higher, Inability to urinate, Inability to have a bowel movement, Shortness of breath, Dizziness, Fainting spells, Chest pain, Uncontrolled pain, - - Any recurrent near fainting events. Instructions: Treating Syncope: Prevention, What Is Syncope?, Causes of Syncope, ED Hypotension Orthostatic Additional Instructions: Please maintain event monitor per Dr. Townsend direction and contact his office if you have any questions or concerns. From review of records you have baseline mild renal dysfunction. Please discuss transition off mobic with your primary care physician to alternate regimen or at least to reduced dose. Allergies/Adverse Reactions: Allergies clonidine Allergy (Verified 10/01/17 09:52) Rash propoxyphene napsylate [From Darvocet-N] Allergy (Verified 10/01/17 09:52) Rash triamcinolone Allergy (Verified 10/01/17 09:52) Rash Medications to take at Discharge Aspirin [Adult Low Dose Aspirin EC] 81 mg PO DAILY 05/14/15 cyanocobalamin (vit B-12) 100 mcg tablet 1,000 mcg PO DAILY 05/11/17 diphenhydramine 25 mg tablet 50 mg PO DAILY 05/11/17 Cholecalciferol (Vitamin D3) [Vitamin D3] 2,000 unit PO DAILY 10/01/17 Glucosamine/MSM/Chondroitin A [Glucosamine Chondroit MSM Tab] 1 each PO BID 10/01/17 Meloxicam [Mobic] 15 mg PO QHS 10/01/17 traZODone [Desyrel] 50 mg PO QHS 10/01/17 Primary Care Physician: Kellee Rodriguez MD [Primary Care Provider] - Please follow up with your Primary Care Physician in: Follow-up within 3-5 days to review admission. Please Follow Up With: Donato Townsend MD When: Please follow-up once completion Event monitor study (30 day). Proposed Discharge Date: 10/02/17
--- NOTE | 2017-10-02 12:36 | DCINST_ITS ---
- Discharge Diagnoses Current Active Problems: (1) Near Syncopal Events suspected likely secondary to dehydration (orthostatic ) with Suspected Junctional Tachycardia, PAF RULED OUT (2) CKD stage III (3) Fahr's Disease (4) Chronic Back Pain You will use the following diet at home:: Regular Your food should be the consistency of: Regular Your liquids should be the consistency of: Regular/Thin Discharge Activity: - - Please maintain appropriate hydration, practice fall precautions, closely follow-up with your primary care physician as well as Cardiology to review event monitor. May resume sexual activity in: No Restrictions Weight Bearing Status: Weight bearing as tolerated Call your doctor if you observe: Fever of 101 or Higher, Inability to urinate, Inability to have a bowel movement, Shortness of breath, Dizziness, Fainting spells, Chest pain, Uncontrolled pain, - - Any recurrent near fainting events. Instructions: Treating Syncope: Prevention, What Is Syncope?, Causes of Syncope , ED Hypotension Orthostatic Additional Instructions: Please maintain event monitor per Dr. Townsend direction and contact his office if you have any questions or concerns. From review of records you have baseline mild renal dysfunction. Please discuss transition off mobic with your primary care physician to alternate regimen or at least to reduced dose. Allergies/Adverse Reactions: Allergies clonidine Allergy (Verified 10/01/17 09:52) Rash propoxyphene napsylate [From Darvocet-N] Allergy (Verified 10/01/17 09:52) Rash triamcinolone Allergy (Verified 10/01/17 09:52) Rash Medications to take at Discharge Aspirin [Adult Low Dose Aspirin EC] 81 mg PO DAILY 05/14/15 cyanocobalamin (vit B-12) 100 mcg tablet 1,000 mcg PO DAILY 05/11/17 diphenhydramine 25 mg tablet 50 mg PO DAILY 05/11/17 Cholecalciferol (Vitamin D3) [Vitamin D3] 2,000 unit PO DAILY 10/01/17 Glucosamine/MSM/Chondroitin A [Glucosamine Chondroit MSM Tab] 1 each PO BID Meloxicam [Mobic] 15 mg PO QHS 10/01/17 traZODone [Desyrel] 50 mg PO QHS 10/01/17 Primary Care Physician: Kellee Rodriguez MD [Primary Care Provider] - Please follow up with your Primary Care Physician in: Follow-up within 3-5 days to review admission. Please Follow Up With: Donato Townsend MD When: Please follow-up once completion Event monitor study (30 day). Proposed Discharge Date: 10/02/17
--- NOTE | 2017-10-02 12:36 | PCM.DC.SUM ---
Discharge Date and Diagnosis Date of Admission: 10/01/17 Date of Discharge: 10/02/17 - Primary Discharge Diagnosis (1) Near Syncopal Events suspected likely secondary to dehydration (orthostatic) with Suspected Junctional Tachycardia, PAF RULED OUT (2) CKD stage III (3) Fahr's Disease (4) Chronic Back Pain - Secondary Discharge Diagnosis Chronic Problems (Last Updated 09/26/17 @ 14:34 by Dayne Cintron MD) Chronic back pain (Chronic) Fahr's disease (Chronic) Overactive bladder (Chronic) Hospital Course and Treatment Dr. Townsend Cardiology Operations: None Procedures: 2-D Echocardiogram, EKG Summary of Care Provided: The patient is a 67 y/o F w/ PMHx: Chronic Back Pain, Fahr's Disease, Overactive bladder, Suspected CKD stage III who presents to the [facility] ED on 10/01/17 wit history of standing up following breakfast intake with sudden onset lightheadedness, weakness, unable to walk, found per her spouse on her knees, diaphoretic, clammy, cold with SBP 80s. Prior recent admission w/ ED EKG over-read per Cardiology w/ noted atrial fibrillation w/ RVR; however, upon further review per Dr. Townsend, Cardiology consulted, likely junctional tachycardia. Patient was admitted to PCU, maintained on telemetry, cardiac enzyme serial set obtained w/ <0.015-->0.023-->0.018, magnesium normal, ECHO w/ grossly appearing normal LV size, wall motion, systolic function, EF 55%, trivial MV insufficiency, trivial TV insufficiency, TSH level elevated but repeat normal and T4 level normal, + orthostatic VS in the ED and upon floor transition with continued IVFs aggressively as suspected presyncopal events secondary to dehydration. Given re-evaluation per Dr. Townsend and felt junctional tachycardia patient not started on any oral regimen as had initially started oral cardizem for possible PAF and in addition given not PAF, deferred any stress testing per Cardiology recommendation. Given improved status, not marked evaluation, patient discharged to home in improved condition w/ 30-day event monitor per Dr. Townsend recommendation with follow-up with PCP and also with Dr. Townsend to review event monitor and re-evaluate patient. During admission noted from review of records CKD stage III w/ admission BUN/Cr /.28, appeared baseline Cr over the last year, normal function in 2017, advised discussion with PCP to reduce/discontinue chronic mobic regimen and choose alternate renally friendly agent. Encouraged continued routine follow-up with Neurology, Dr. Morealnd for her Fahr's disease and continued home therapies. DAY OF DISCHARGE PROGRESS NOTE: Subjective: Patient without acute event overnight per self and nursing report. She notes feeling improved, no recurrent presyncopal symptoms. Patient denies fever, chills, nausea, emesis, abdominal pain, chest pain or dyspnea. Patient agreeable to discharge to home with continued home therapies. Patient will be discharged with follow-up with primary care physician within 3-5 days in addition to Dr. Townsend, Cardiology following completion of 30-day event monitor evaluation. Objective: T 97.7, heart rate 57, BP 135/85, respiratory rate 16, 97% on room air. Physical Examination: General: awake, alert, oriented x 3 and cooperative, seated upright in the bedside chair, NAD. Skin: normal color, turgor, no icterus, cyanosis. HEENT: AT/NC, EOMI, PERRLA, MMM. Lungs: CTA bilaterally, moderate effort, mild decrease BL bases, no rales, ronchi or wheezing. Heart: Regular rate and rhythm; no gallop, rub audible. Abdomen: soft, NTTP, ND, normal BS. Extremities: no cyanosis, clubbing, or edema. Neurological: patient awake, alert, oriented x 3; cognitive function intact; pupils equally reactive to light and accomodation; cranial nerves II-XII grossly normal, moving all 4 extremities, chronic mild dysarthria and generalized mild 4-5/5 weakness, stable secondary to Fahr's disease. Psychiatric: affect appears normal, no acute evidence of depressive or anxiety feelings. Assessment and Plan: Please see hospital summary above. Discharge Activity: - - Please maintain appropriate hydration, practice fall precautions, closely follow-up with your primary care physician as well as Cardiology to review event monitor. May resume sexual activity in: No Restrictions Weight Bearing Status: Weight bearing as tolerated Call your doctor if you observe: Fever of 101 or Higher, Inability to urinate, Inability to have a bowel movement, Shortness of breath, Dizziness, Fainting spells, Chest pain, Uncontrolled pain, - - Any recurrent near fainting events. Home Medications: Medications to take at Discharge Aspirin [Adult Low Dose Aspirin EC] 81 mg PO DAILY 05/14/15 cyanocobalamin (vit B-12) 100 mcg tablet 1,000 mcg PO DAILY 05/11/17 diphenhydramine 25 mg tablet 50 mg PO DAILY 05/11/17 Cholecalciferol (Vitamin D3) [Vitamin D3] 2,000 unit PO DAILY 10/01/17 Glucosamine/MSM/Chondroitin A [Glucosamine Chondroit MSM Tab] 1 each PO BID 10/01/17 Meloxicam [Mobic] 15 mg PO QHS 10/01/17 traZODone [Desyrel] 50 mg PO QHS 10/01/17 Primary Care Physician: Kellee Rodriguez MD [Primary Care Provider] - Please follow up with your Primary Care Physician in: Follow-up within 3-5 days to review admission. Please Follow Up With: Donato Townsend MD When: Please follow-up once completion Event monitor study (30 day). Patient Instructions: What Is Syncope?, Causes of Syncope, Treating Syncope: Prevention, ED Hypotension Orthostatic Disposition: Home with Home Health Minutes spent on discharge:: 20 Patient Condition:: Fair Medical Necessity - Tobacco Use Smoking Status: Never smoker Tobacco Use: Non-smoker Meaningful Use Info Meaningful Use Diagnoses (Choose all that apply): None applicable Code Visit OBSV E&M: 09661 Observation care discharge
--- NOTE | 2017-10-02 12:45 | DS.PCM_ITS ---
Discharge Date and Diagnosis Date of Admission: 10/01/17 Date of Discharge: 10/02/17 - Primary Discharge Diagnosis (1) Near Syncopal Events suspected likely secondary to dehydration (orthostatic ) with Suspected Junctional Tachycardia, PAF RULED OUT (2) CKD stage III (3) Fahr's Disease (4) Chronic Back Pain - Secondary Discharge Diagnosis Chronic Problems (Last Updated 09/26/17 @ 14:34 by Dayne Cintron MD) Chronic back pain (Chronic) Fahr's disease (Chronic) Overactive bladder (Chronic) Hospital Course and Treatment Dr. Townsend Cardiology Operations: None Procedures: 2-D Echocardiogram, EKG Summary of Care Provided: The patient is a 67 y/o F w/ PMHx: Chronic Back Pain, Fahr's Disease, Overactive bladder, Suspected CKD stage III who presents to the [facility] [place] ED on wit history of standing up following breakfast intake with sudden onset lightheadedness, weakness, unable to walk, found per her spouse on her knees, diaphoretic, clammy, cold with SBP 80s. Prior recent admission w/ ED EKG over- read per Cardiology w/ noted atrial fibrillation w/ RVR; however, upon further review per Dr. Townsend, Cardiology consulted, likely junctional tachycardia. Patient was admitted to PCU, maintained on telemetry, cardiac enzyme serial set obtained w/ <0.015-->0.023-->0.018, magnesium normal, ECHO w/ grossly appearing normal LV size, wall motion, systolic function, EF 55%, trivial MV insufficiency , trivial TV insufficiency, TSH level elevated but repeat normal and T4 level normal, + orthostatic VS in the ED and upon floor transition with continued IVFs aggressively as suspected presyncopal events secondary to dehydration. Given re-evaluation per Dr. Townsend and felt junctional tachycardia patient not started on any oral regimen as had initially started oral cardizem for possible PAF and in addition given not PAF, deferred any stress testing per Cardiology recommendation. Given improved status, not marked evaluation, patient discharged to home in improved condition w/ 30-day event monitor per Dr. Townsend recommendation with follow-up with PCP and also with Dr. Townsend to review event monitor and re-evaluate patient. During admission noted from review of records CKD stage III w/ admission BUN/Cr /.28, appeared baseline Cr over the last year, normal function in 2017, advised discussion with PCP to reduce/ discontinue chronic mobic regimen and choose alternate renally friendly agent. Encouraged continued routine follow-up with Neurology, Dr. Moreland for her Fahr's disease and continued home therapies. DAY OF DISCHARGE PROGRESS NOTE: Subjective: Patient without acute event overnight per self and nursing report. She notes feeling improved, no recurrent presyncopal symptoms. Patient denies fever, chills, nausea, emesis, abdominal pain, chest pain or dyspnea. Patient agreeable to discharge to home with continued home therapies. Patient will be discharged with follow-up with primary care physician within 3-5 days in addition to Dr. Townsend, Cardiology following completion of 30-day event monitor evaluation. Objective: T 97.7, heart rate 57, BP 135/85, respiratory rate 16, 97% on room air. Physical Examination: General: awake, alert, oriented x 3 and cooperative, seated upright in the bedside chair, NAD. Skin: normal color, turgor, no icterus, cyanosis. HEENT: AT/NC, EOMI, PERRLA, MMM. Lungs: CTA bilaterally, moderate effort, mild decrease BL bases, no rales, ronchi or wheezing. Heart: Regular rate and rhythm; no gallop, rub audible. Abdomen: soft, NTTP, ND, normal BS. Extremities: no cyanosis, clubbing, or edema. Neurological: patient awake, alert, oriented x 3; cognitive function intact; pupils equally reactive to light and accomodation; cranial nerves II-XII grossly normal, moving all 4 extremities, chronic mild dysarthria and generalized mild 4-5/5 weakness, stable secondary to Fahr's disease. Psychiatric: affect appears normal, no acute evidence of depressive or anxiety feelings. Assessment and Plan: Please see hospital summary above. Discharge Activity: - - Please maintain appropriate hydration, practice fall precautions, closely follow-up with your primary care physician as well as Cardiology to review event monitor. May resume sexual activity in: No Restrictions Weight Bearing Status: Weight bearing as tolerated Call your doctor if you observe: Fever of 101 or Higher, Inability to urinate, Inability to have a bowel movement, Shortness of breath, Dizziness, Fainting spells, Chest pain, Uncontrolled pain, - - Any recurrent near fainting events. Home Medications: Medications to take at Discharge Aspirin [Adult Low Dose Aspirin EC] 81 mg PO DAILY 05/14/15 cyanocobalamin (vit B-12) 100 mcg tablet 1,000 mcg PO DAILY 05/11/17 diphenhydramine 25 mg tablet 50 mg PO DAILY 05/11/17 Cholecalciferol (Vitamin D3) [Vitamin D3] 2,000 unit PO DAILY 10/01/17 Glucosamine/MSM/Chondroitin A [Glucosamine Chondroit MSM Tab] 1 each PO BID Meloxicam [Mobic] 15 mg PO QHS 10/01/17 traZODone [Desyrel] 50 mg PO QHS 10/01/17 Primary Care Physician: Kellee Rodriguez MD [Primary Care Provider] - Please follow up with your Primary Care Physician in: Follow-up within 3-5 days to review admission. Please Follow Up With: Donato Townsend MD When: Please follow-up once completion Event monitor study (30 day). Patient Instructions: What Is Syncope?, Causes of Syncope, Treating Syncope: Prevention, ED Hypotension Orthostatic Disposition: Home with Home Health Minutes spent on discharge:: 20 Patient Condition:: Fair Medical Necessity - Tobacco Use Smoking Status: Never smoker Tobacco Use: Non-smoker Meaningful Use Info Meaningful Use Diagnoses (Choose all that apply): None applicable Code Visit OBSV E&M: 31720 Observation care discharge
== END 2017-10-02 12:35 | disposition home or self-care (01) ==
LOC: ED 10:24 → PCU 13:02
PROVIDERS: Internal Medicine Cardiovascular Disease; Admitting Provider Family Medicine; Emergency Provider Emergency Medicine; Family Provider Internal Medicine; PCP Internal Medicine; Visit Provider Family Medicine
DX: R55 Syncope and collapse (principal); N18.3 Chronic kidney disease, stage 3 (moderate); G23.8 Other specified degenerative diseases of basal ganglia; G89.29 Other chronic pain; Z79.899 Other long term (current) drug therapy; Z79.82 Long term (current) use of aspirin; N32.81 Overactive bladder; I45.10 Unspecified right bundle-branch block
CPT/HCPCS: 36415; 71045; 80048; 80053; 80061; 83735; 84439; 84443; 84484; 85025; 93005; 93306; 96361; 96372; 96374; 97802; 99218; 99285; J7030; G0378

== ENCOUNTER → 2017-10-12 07:08 | Day surgery (SDC) | payer MEDICARE, OTHER, SELFPAY ==
--- NOTE | 2017-10-12 09:47 | CL.D_ITS ---
Patient Name: AIDA HERNANDEZ Study Date: 10/12/2017 Performing: Donato Townsend MD Ht: inches cm : 1950 Wt: 130.07 lbs 59 kg Age: 67 Gender: female BSA: PROCEDURE(S) PERFORMED [id number]/LV CLINICAL PROFILE AND INDICATIONS Indications: Syncope Heart Failure: None Stress/Imaging Stress/Image Study Performed: No Angina Classification Anginal Classification w/in 2 Weeks: No symptoms CAD Presentations: No Sxs, no angina. CONCLUSIONS Normal coronary arteries Normal LV size, wall motion,and systolic function RECOMMENDATIONS Medical therapy DESCRIPTION OF PROCEDURE The patient arrived to the procedure lab. The risks and benefits of the procedure as well as a full d escription of our services here and current unavailability of surgical backup were fully explained to the patient and/or their significant other prior to the catheterization. The Timeout was completed, verifying the correct patient and procedure. The patient's procedural site was prepped and draped in the usual fashion. Local anesthetic was given subcutaneously to right radial region with Lidocaine 2% . Local anesthetic was given subcutaneously to right groin region with Lidocaine 2%. Using a modified Seldinger technique, arterial access was obtained via the right femoral artery, a 5Fr sheath was ins erted. Left Coronary Artery selective angiography was performed in multiple views using a 5 Fr. JL4 catheter. Right Coronary Artery selective angiography was then performed in multiple views using a 5 Fr. 3DRC (Brien) catheter. Left Ventriculography was performed in VELASQUEZ projection using a 5 Fr. Pig tail catheter. LV to AO pullback pressures were then recorded.Contrast was injected through the sheat h and the Right Iliac and Femoral artery were assessed for possible closure device.The arterial sheat h was pulled and a Mynx closure device was deployed for hemostasis CORONARY ANGIOGRAPHY DOMINANCE: Right Dominant LEFT HEART ASSESSMENT Left Ventricular Ejection Fraction: by LV Gram 60 % Normal LV wall motion Normal Left Ventricular systolic function Normal Left Ventricular systolic function LEFT MAIN: Angiographically normal LEFT ANTERIOR DECENDING ARTERY: Angiographically normal CIRCUMFLEX ARTERY: Angiographically normal RIGHT CORONARY ARTERY: Angiographically normal COMPLICATIONS No Complications PROCEDURE MEDICATIONS Fentanyl 50 mcg IV Versed 1 mg IV Oxygen: 2 L/min via nasal cannula SUMMARY OF HEMODYNAMIC DATA Time AIR REST ECG 07:37:31 AO 164/80 (111) SA 09:02:45 LV 158/5, 17 09:11:10 LV 158/5, 15 09:11:17 LV 156/6, 20 09:12:17 LV 157/5, 20 09:12:24 LVp 158/4, 20 09:12:28 AOp 168/74 (115) 09:12:33 Signed By Donato Townsend MD On 10/12/2017 09:46:39 Donato Townsend MD
== END ==
PROVIDERS: Family Provider Internal Medicine; PCP Internal Medicine; Visit Provider Internal Medicine Cardiovascular Disease
DX: I47.2 Ventricular tachycardia (principal); R55 Syncope and collapse; M54.9 Dorsalgia, unspecified; G89.29 Other chronic pain; N32.81 Overactive bladder; G23.8 Other specified degenerative diseases of basal ganglia; Z79.82 Long term (current) use of aspirin; Z79.899 Other long term (current) drug therapy
CPT/HCPCS: 93458; 99152; 99153; C1760; J7040; Q9967; A4216; C1769; C1894

== ENCOUNTER → 2018-09-06 08:21 | Outpatient (CLI) | payer MEDICARE, OTHER, SELFPAY ==
--- NOTE | 2018-09-06 08:28 | CT_ITS ---
STUDY: CT BRAIN WITHOUT CONTRAST REASON FOR EXAM: Female, 68 years old. The patient has a history of Fahr s disease. RADIATION DOSAGE (If Supplied By Facility): CTDIvol = ( 44.99 ) mGy, DLP = ( 779.24 ) mGycm TECHNIQUE: Transaxial CT imaging of the brain was performed without administration of intravenous contrast material. Individualized dose optimization techniques were used for this CT. COMPARISON: Comparison is made with prior study dated September 26, 2017. FINDINGS: Normal soft tissue structures. Normal calvarium. There is mild cerebral atrophy with widening of the extra-axial spaces and ventricular dilatation. There are areas of decreased attenuation within the white matter tracts of the supratentorial brain, consistent with microvascular disease changes. Once again, there is evidence of a dense calcification of the cerebellar hemispheres as well as the basal ganglia and mckay radiata areas involving both cerebral hemispheres. Normal brainstem. There is moderate cerebellar atrophy. There is no intracranial hemorrhage. There are no findings of an acute ischemic infarction. Mucosal thickening of the posterior right maxillary sinus. CT/Brain/Head without Contrast IMPRESSION: No acute intracranial abnormality seen. 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 Electronically Signed: David Harris, at 13:51 EDT , Service support ,
--- NOTE | 2018-09-13 11:41 | EEG ---
- Electroencephalogram This is an 18 channel electroencephalogram performed utilizing International 10-20 electrode placement protocol as well as photic stimulation, hyperventilation and EKG reference leads on this 68-year-old female. Background activity is 8 Hz symmetrically in the posterior leads which attenuates with eye-opening. Hyperventilation is performed for 2 minutes with good effort with no lateralizing or epileptiform changes and the post hyperventilatory phase is unremarkable. The patient remained awake throughout the recording without lateralizing or epileptiform changes. Photic simulation generates a normal symmetric driving response in the posterior leads and EKG rhythm strip monitoring is normal sinus rhythm throughout the test. Impression: Normal awake EEG
--- NOTE | 2018-09-13 11:44 | EEG_ITS ---
- Electroencephalogram This is an 18 channel electroencephalogram performed utilizing International 10- 20 electrode placement protocol as well as photic stimulation, hyperventilation and EKG reference leads on this 68-year-old female. Background activity is 8 Hz symmetrically in the posterior leads which attenuates with eye-opening. Hyperventilation is performed for 2 minutes with good effort with no lateralizing or epileptiform changes and the post hyperventilatory phase is unremarkable. The patient remained awake throughout the recording without late ralizing or epileptiform changes. Photic simulation generates a normal symmetric driving response in the posterior leads and EKG rhythm strip monitoring is normal sinus rhythm throughout the test. Impression: Normal awake EEG
== END ==
PROVIDERS: Family Provider Internal Medicine; PCP Internal Medicine; Referring Provider Psychiatry & Neurology Neurology; Visit Provider Psychiatry & Neurology Neurology
DX: G23.8 Other specified degenerative diseases of basal ganglia (principal); R55 Syncope and collapse
CPT/HCPCS: 70450; 95819